=== PATIENT | female | born 1955 | race Caucasian/White ===

== ENCOUNTER → 2020-08-23 11:11 | Outpatient (BNVA) | payer MEDICARE, SELFPAY | PROVIDERS: Visit Provider Obstetrics & Gynecology | DX: Z01.818 Encounter for other preprocedural examination (principal); D21.9 Benign neoplasm of connective and other soft tissue, unspecified; N95.0 Postmenopausal bleeding | CPT/HCPCS: 99213 ==

== ENCOUNTER 2020-08-24 08:26 | Day surgery (SDC) | payer MEDICARE, SELFPAY ==
[2020-08-17 10:42] VITALS: BMI 33.0
--- NOTE | 2020-08-22 08:37 | HO.ANESPROP2 ---
Documented by User: Dori Haines 08/22/20 08:39 HPI - Anesthesia Eval Consult details Narrative: 65yo F for D&C: postmenopausal bleeding PMFSH Past Medical History Medical History Elevated cholesterol GERD (gastroesophageal reflux disease) HTN (hypertension) On beta addison at home Family History Family History Mother Breast cancer Maternal Uncle Lung cancer Brother Colon cancer Surgical History Surgical History History of surgical removal of pilonidal cyst Social History Social History (Updated 08/23/20 @ 11:29 by ELVIS Gonzalez) Alcohol intake: never Smoking Status: Never smoker Use of substances other than those prescribed or required for medical reasons: No Advance Directives: No Advance Directives Information Provided: No Advance Directives on File: No Recently lost weight without trying: No Sexual orientation: Straight/Heterosexual Gender identity: female Meds Allergies Allergy/AdvReac Type Severity Reaction Status Date / Time lisinopril Allergy Unknown Cough Verified 08/23/20 11:25 Home Medications Medication Instructions Recorded Confirmed Type calcium carbonate-vitamin D3 1 tab PO BID 08/17/20 08/17/20 History [Calcium 500 + D (D3)] cyclosporine [Restasis] 1 drp OPHTHALMIC (EYE) Q12H 08/17/20 08/17/20 History losartan 50 mg PO DAILY 08/17/20 08/17/20 History metoprolol succinate 100 mg PO DAILY 08/17/20 08/17/20 History metronidazole [MetroCream] 1 applic TOPICAL BID 08/17/20 08/17/20 History omega 9-rul-lmj-fish oil [Fish Oil] 1 cap PO DAILY 08/17/20 08/17/20 History pantoprazole 20 mg PO DAILY 08/17/20 08/17/20 History simvastatin 40 mg PO BEDTIME 08/17/20 08/17/20 History fluorometholone 0.25 % eye 1 drp OPHTHALMIC (EYE) Q6H 08/23/20 History drops,suspension Exam Exam Date and Time: August 22, 2020 0837 Height,Weight and Vital Signs: Height 5 ft 1 in Weight 79.379 kg Pertinent Lab Results Pertinent Lab Results: Laboratory Tests 06/04/20 15:48 BUN 22 H Creatinine 0.87 Assessment and Plan Assessment Anesthesia Assessment: Chart Reviewed Documented by User: Jayesh Palma MD 08/24/20 10:57 PMFSH Past Medical History Medical History Elevated cholesterol GERD (gastroesophageal reflux disease) HTN (hypertension) On beta addison at home Family History Family History Mother Breast cancer Maternal Uncle Lung cancer Brother Colon cancer Surgical History Surgical History History of surgical removal of pilonidal cyst Social History Social History (Updated 08/23/20 @ 11:29 by ELVIS Gonzalez) Alcohol intake: never Smoking Status: Never smoker Use of substances other than those prescribed or required for medical reasons: No Advance Directives: No Advance Directives Information Provided: No Advance Directives on File: No Recently lost weight without trying: No Sexual orientation: Straight/Heterosexual Gender identity: female Meds Allergies Allergy/AdvReac Type Severity Reaction Status Date / Time lisinopril Allergy Unknown Cough Verified 08/23/20 11:25 Home Medications Medication Instructions Recorded Confirmed Type calcium carbonate-vitamin D3 1 tab PO BID 08/17/20 08/17/20 History [Calcium 500 + D (D3)] cyclosporine [Restasis] 1 drp OPHTHALMIC (EYE) Q12H 08/17/20 08/17/20 History losartan 50 mg PO DAILY 08/17/20 08/17/20 History metoprolol succinate 100 mg PO DAILY 08/17/20 08/17/20 History metronidazole [MetroCream] 1 applic TOPICAL BID 08/17/20 08/17/20 History omega 3-law-sgl-fish oil [Fish Oil] 1 cap PO DAILY 08/17/20 08/17/20 History pantoprazole 20 mg PO DAILY 08/17/20 08/17/20 History simvastatin 40 mg PO BEDTIME 08/17/20 08/17/20 History fluorometholone 0.25 % eye 1 drp OPHTHALMIC (EYE) Q6H 08/23/20 History drops,suspension Exam Airway Mallampati Class: III TM Dist: >3cm Neck ROM: Full Loose/Missing/Broken Teeth: No Heart: rrr Lungs: nl Other: ao3 Assessment and Plan Assessment Anesthesia Assessment: Anesthesia Plan Discussed and Chart Reviewed Final Anesthetic Review NPO: Yes ASA Class: III Final Preanesthetic Review: No Changes in Pt Med Stat, Meds/Allgs Chart Reviewed, Consent Obtained/Reviewed and Anes Risks/Benef Reviewed Patient Risk: Intermediate Procedure Risk: Intermediate Anesthetic Plan Anesthetic Plan: GA Disposition: Standard PACU
[2020-08-24] VITALS (10 sets, daily range): BP systolic 95–161; BP diastolic 36–58; PULSE 47–70; RESP 16–19; TEMP 36.1–36.9; O2SAT 94–100
[2020-08-24] MEDS: Lactated Ringers 1,000 ML 100 ML IVCONT (09:47)
--- NOTE | 2020-08-24 11:25 | MHC.SHP ---
Pre-Procedural Eval Section A The patient is an INPATIENT: No Changes since office visit: No Cold of Flu in the past 2 weeks, No New Medical Problems, No Changes in Medication and No Patient answered all questions The History & Physical has been completed within 30 days and I have reviewed it.: Yes Section B Chief Complaint: postmenopausal bleeding Allergies: Allergies Allergy/AdvReac Type Severity Reaction Status Date / Time lisinopril Allergy Unknown Cough Verified 08/23/20 11:25 Plan Diagnosis/Plan: Unchanged Patient has been examined and remains a candidate for the planned procedure
--- NOTE | 2020-08-24 12:14 | PM.OP ---
Brief Operative Note Date of procedure: 08/24/20 Pre-op diagnosis: Postmenopausal bleeding Post-op diagnosis: same Procedure: Hysteroscopy D&C, Polypectomy Surgeon: Samir Whitmore MD Anesthesia: MAC Estimated blood loss (mL): 0 Pathology: other (Endometrial Scrapping. Polyp) Condition: stable Disposition: PACU
--- NOTE | 2020-08-24 12:23 | P.OP_ITS ---
Operative Note Operative Note Narrative: Preop Diagnosis: Post Menopausal bleeding Operation: Diagnostic Hysteroscopy, Dilataion & Curettage and polypectomy Post Op Diagnosis: Endometrial Polyp QBL: Minimal Anesthesia: MAC Surgeon: Samir Whitmore MD Religion Department Chair: None Complication: None Pathology: Endometrial Scrapings, Endometrial polyp Procedure: The paPreop Diagnosis: Post Menopausal bleeding Operation: Diagnostic Hysteroscopy, Dilataion & Curettage and polypectomy Post Op Diagnosis: Endometrial Polyp QBL: Minimal Anesthesia: MAC Surgeon: Samir Whitmore MD Religion Department Chair: None Complication: None Pathology: Endometrial Scrapings, Endometrial polyp Procedure: The patient was put in the dorsal lithotomy position, scrubbed, and draped in the usual manner. A sterile speculum was inserted in the patient's vagina. The anterior lip of the cervix was grasped with a single tooth tenaculum. The cervix was dilated up t o 5 mm, then the scope was inserted in the patient's uterus. Inspection revealed endometrial polyp. The Myosure Reach device was used; it was introduced through the operative channel and polypectomy done with no complications. At the end of the procedure, all instruments were taken out of the patient uterine and vaginal cavity. The single tooth tenaculum was removed and homeostasis was assured using pressure,. The patient tolerated the procedure well and was transferred to the PACU in a stable condition.
[2020-08-24] MEDS: Ketorolac Tromethamine 30 MG/ML VIAL IVPUSH (12:52)
--- NOTE | 2020-08-24 13:36 | HO.POSTANES ---
Post Anesthesia Evaluation Post Anesthesia Evaluation Vital Signs: Vital Signs Temp Pulse Resp BP Pulse Ox 08/24/20 13:30 57 18 137/55 L 97 08/24/20 13:15 55 19 136/55 L 95 08/24/20 13:00 54 16 128/51 L 95 08/24/20 12:46 50 18 106/43 L 96 08/24/20 12:31 47 L 16 95/38 L 94 08/24/20 12:26 49 L 16 110/36 L 96 08/24/20 12:21 51 16 132/46 L 100 08/24/20 12:17 97.0 F 50 16 147/58 H 100 08/24/20 09:31 98.4 F 69 16 161/58 H 98 Anesthesia: General Mental Status: Awake Pain Control: Satisfactory Nausea/Vomiting: None Hydration: Adequate Anesthesia-Related Issues: No Anes. Related Issues
== END 2020-08-24 14:39 | disposition home or self-care (01) ==
PROVIDERS: PCP Internal Medicine; Visit Provider Obstetrics & Gynecology
PROC: 0UDB8ZX Extraction of Endometrium, Via Natural or Artificial Opening Endoscopic, Diagnostic (ICD-10-PCS; CPT 58558; principal; 2020-08-24 10:00)
DX: N95.0 Postmenopausal bleeding (principal); N84.0 Polyp of corpus uteri; I10 Essential (primary) hypertension; E78.00 Pure hypercholesterolemia, unspecified; K21.9 Gastro-esophageal reflux disease without esophagitis; Z79.899 Other long term (current) drug therapy
CPT/HCPCS: 58558; 88305; J1885; J2405; J3010

== ENCOUNTER 2020-08-30 09:07 | Outpatient (REF) | payer MEDICARE, SELFPAY ==
--- NOTE | 2020-08-30 09:11 | US_ITS ---
EXAMINATION: US PELVIS COMPLETE US PELVIS TRANSABDOMINAL CLINICAL INFORMATION: Benign neoplasm of connective or other soft tissue. COMPARISON: Ultrasound pelvis 05/16/2020. TECHNIQUE: Transabdominal and transvaginal ultrasounds of the pelvis are performed. FINDINGS: The uterus is anteverted, anteflexed and enlarged measuring 13.4 cm in length, 6.8 cm in AP and 7.9 cm wide. There are several hyperechoic lesions visualized. 1. The largest lesion in the fundus measures 7.5 x 7.0 x 8.2 cm. Previously it measured 7.8 x 6.8 x 8.3 cm. 2. Lesion in the left posterior lower body of the uterus measures 2.0 x 1.9 x 2.0 cm. Previously it measured 2.1 x 1.9 x 1.8 cm. 3. Lesion in the right posterior lower body of the uterus measures 2.6 x 2.3 x 2.5 cm. Previously it measured 2.3 x 2.3 x 2.0 cm. 4. Smaller lesion in the left mid body of the uterus measures 0.9 x 0.4 x 0.9 cm. Previously it measured 1.1 x 0.4 x 1.5 cm. 5. Lesion in the anterior body of the uterus measures 0.9 x 0.5 x 0.9 cm. Previously not seen. The right ovary measures 2.0 x 1.4 x 1.2 cm and volume 1.8 mL. The ovaries are unremarkable. Previously it measured 1.9 x 1.7 x 1.3 cm. The left ovary measures 2.6 x 1.0 x 1.5 cm and volume 1.9 mL. Previously it measured 2.2 x 1.4 x 1.1 cm. There is no free fluid in the cul-de-sac. US/US pelvic complete IMPRESSION: 1. Bulky enlarged uterus with multiple fibroids as described above. 2. The ovaries are unremarkable.
== END 2020-08-30 09:08 | disposition home or self-care (01) ==
LOC: HO.HMGCX 09:07
PROVIDERS: PCP Internal Medicine; Visit Provider Obstetrics & Gynecology
DX: D21.9 Benign neoplasm of connective and other soft tissue, unspecified (principal); N85.02 Endometrial intraepithelial neoplasia [EIN]
CPT/HCPCS: 76830; 76856; 99213; Q3014

== ENCOUNTER 2021-06-18 08:09 | Outpatient (REF) | payer MEDICARE, SELFPAY ==
[2021-06-18 11:27] LABS: MANUAL DIFF FLAG NO
[2021-06-18 11:35] LABS: Basophils Percent Auto 0.2 % (0-2); Eosinophils Absolute Auto 0.1 X10*3/uL (0.0-0.4); Eosinophils Percent Auto 1.1 % (0-4); Hematocrit 41.2 % (37-47); Hemoglobin 13.1 g/dl (12.0-16.0); Imm Gran Abs Auto 0.02 X10*3/uL (0.00-0.03); Imm Gran Pct Auto 0.4 % (0.0-0.4); Lymphocytes Absolute Auto 1.4 X10*3/uL (1.2-4.9); Lymphocytes Percent Auto 25.9 % (20-40); Mean Corpuscular HGB Conc 31.8 g/dl (31.0-35.0); Mean Corpuscular Hemoglobin 27.6 pg (27.0-33.0); Mean Corpuscular Volume 86.9 fL (80-98); Mean Platelet Volume 11.9 fL (9.4-12.3); Monocytes Absolute Auto 0.5 X10*3/uL (0.1-1.2); Monocytes Percent Auto 9.6 % (2-11); Neutrophils Absolute Auto 3.5 X10*3/uL (2.0-8.3); Neutrophils Percent Auto 62.8 % (45-73); Platelet Count 200 X10*3/uL (160-400); Red Blood Count 4.74 X10*6/uL (4.20-5.50); Red Cell Distribution Width 13.2 % (11.0-16.0); White Blood Count 5.5 X10*3/uL (4.8-10.8)
[2021-06-18 11:57] LABS: Alanine Aminotransferase 30 U/L (0-31); Albumin Level 4.3 g/dL (3.5-5.0); Alkaline Phosphatase 96 U/L (39-117); Anion Gap 13 (12-20); Aspartate Amino Transferase 24 U/L (5-31); Bilirubin Direct 0.2 mg/dL (0.0-0.5); Bilirubin Total 0.4 mg/dL (0.0-1.0); Blood Urea Nitrogen 19 mg/dL (9-16); Carbon Dioxide 28 mmol/L (22-29); Chloride 107 mmol/L (96-108); Cholesterol 167 mg/dL; Estimated Glomerular Filt Rate > 60; Glucose Fasting 101 mg/dL (60-99); HDL Cholesterol 39 mg/dL; LDL Cholesterol Calculated 94 mg/dl; Potassium 4.4 mmol/L (3.3-5.1); Sodium 144 mmol/L (135-145); Total Protein 6.9 g/dL (6.5-8.0); Triglycerides 172 mg/dL
== END 2021-06-18 08:10 | disposition home or self-care (01) ==
LOC: HO.HMGCLDS 08:09
PROVIDERS: PCP Internal Medicine; Visit Provider Internal Medicine
DX: R53.83 Other fatigue (principal); E78.5 Hyperlipidemia, unspecified
CPT/HCPCS: 36415; 80051; 80061; 80076; 82565; 82947; 84520; 85025

== ENCOUNTER 2021-06-21 13:26 | Outpatient (REF) | payer MEDICARE, SELFPAY ==
--- NOTE | ~2021-06-21 | XR_ITS ---
EXAMINATION: XR FOOT, RIGHT CLINICAL INFORMATION: Right foot pain COMPARISON: April 23, 2015 TECHNIQUE: AP, lateral, and oblique views of the right foot. FINDINGS: There is no evidence of acute fracture or dislocation of the right foot. There is a minimal plantar calcaneal spur and a small Achilles calcaneal spur. XR/XR foot RT min 3V IMPRESSION: Calcaneal spurs without evidence of acute fracture or dislocation of the right foot.
== END 2021-06-21 13:27 | disposition home or self-care (01) ==
LOC: HO.HMGCX 13:26
PROVIDERS: PCP Internal Medicine; Visit Provider Internal Medicine
DX: M79.671 Pain in right foot (principal)
CPT/HCPCS: 73630

== ENCOUNTER 2021-07-19 07:49 | Outpatient (REF) | payer MEDICARE, SELFPAY ==
--- NOTE | ~2021-07-19 | MM_ITS ---
EXAMINATION: MM SCREENING DIGITAL BREAST TOMOSYNTHESIS, BILATERAL CLINICAL INFORMATION: Screening. Asymptomatic. The lifetime risk of breast cancer based on the Tyrer-Cuzick Model is 11%. COMPARISON: Mammography: 07/13/2020, 12/07/2018, 12/04/2017 TECHNIQUE: Digital breast tomosynthesis is performed in both the craniocaudal and mediolateral oblique views along with computer-aided detection (CAD). Synthesized 2D images are generated from the tomosynthesis. FINDINGS: The breasts are heterogeneously dense, which may obscure small masses (ACR BI-RADS breast composition Category c). There are no significant masses, abnormal calcifications, or other abnormalities. No developing density. No significant changes from prior exams. Breast tissue composition borders on average fibroglandular. MM/MM tomosynthesis screening BI IMPRESSION: There are no significant changes from prior study. ASSESSMENT: BI-RADS 1: Negative RECOMMENDATION: Routine annual mammography screening. This patient's information was entered into a reminder system with a target due date for their next mammogram.
== END 2021-07-19 07:50 | disposition home or self-care (01) ==
LOC: HO.MAMMO 07:49
PROVIDERS: Visit Provider Internal Medicine
DX: Z12.31 Encounter for screening mammogram for malignant neoplasm of breast (principal)
CPT/HCPCS: 77063; 77067

== ENCOUNTER 2021-08-09 09:50 | Outpatient (REF) | payer MEDICARE, SELFPAY ==
--- NOTE | ~2021-08-09 | XR_ITS ---
EXAMINATION: XR KNEE, RIGHT CLINICAL INFORMATION: Degenerative joint disease. COMPARISON: None. TECHNIQUE: AP, lateral, and sunrise views of the right knee. FINDINGS: No significant joint space narrowing. Tiny medial compartment marginal osteophytes. No osseous erosion. No fracture or dislocation. Small joint effusion. XR/XR knee RT 3V IMPRESSION: Minimal medial compartment arthrosis. Small joint effusion.
== END 2021-08-09 09:51 | disposition home or self-care (01) ==
LOC: HO.HMGCX 09:50
PROVIDERS: PCP Internal Medicine; Visit Provider Internal Medicine
DX: M25.561 Pain in right knee (principal)
CPT/HCPCS: 73562

== ENCOUNTER 2022-02-24 10:19 | Outpatient (REF) | payer MEDICARE, SELFPAY ==
--- NOTE | ~2022-02-24 | MR_ITS ---
EXAMINATION: MR KNEE WITHOUT CONTRAST, RIGHT CLINICAL INFORMATION: Chronic right knee pain instability. COMPARISON: X-rays of the right knee August 2021 TECHNIQUE: MRI of the knee without contrast was performed using routine sequences on a high-field scanner. FINDINGS: MENISCI: Medial Meniscus: There is blunting of the free edge of the posterior horn There are scattered areas of increased signal along the femoral and tibial articular surfaces particularly along the peripheral aspect of the meniscus. There is also deformity at the junction of the posterior horn and posterior root likely a consequence of a partially detached and displaced meniscal fragment related to the aforementioned tear. The body and anterior horn are intact. Lateral Meniscus: Intact LIGAMENTS: Cruciate: Intact Collateral: o EXTENSOR MECHANISM: Intact ARTICULAR CARTILAGE/BONE: Patellofemoral Compartment: Normal Medial Compartment: Minimal subchondral edema with overlying cartilage thinning in the weightbearing medial femoral condyle. Overall minimal arthrosis. Lateral Compartment: Minimal cartilage heterogeneity in the weightbearing tibial articular surface. Femoral cartilage normal. Overall minimal arthrosis. JOINT FLUID AND BURSAE: There is a mild joint effusion. MR/MR knee RT wo con IMPRESSION: 1. Complex tear the posterior horn of the medial meniscus. Partially detached meniscal fragment related to the tear. 2. Minimal osteoarthritis.
== END 2022-02-24 10:20 | disposition home or self-care (01) ==
LOC: HO.MRI 10:19
PROVIDERS: PCP Internal Medicine; Visit Provider Internal Medicine
DX: M25.561 Pain in right knee (principal); M25.461 Effusion, right knee
CPT/HCPCS: 73721

== ENCOUNTER → 2022-03-10 09:40 | Outpatient (BNVA) | payer MEDICARE, SELFPAY | PROVIDERS: PCP Internal Medicine; Visit Provider Orthopaedic Surgery | DX: S83.241A Other tear of medial meniscus, current injury, right knee, initial encounter (principal) | CPT/HCPCS: 99202 ==

== ENCOUNTER 2022-04-09 09:07 | Day surgery (SDC) | payer MEDICARE, SELFPAY ==
[2022-04-03 09:42] VITALS: BMI 31.1
--- NOTE | 2022-04-08 08:41 | P.CONAN_ITS ---
Documented by User: Dori Haines NP 04/08/22 08:42 HPI - Anesthesia Eval Consult details Narrative: 67yo F for Right Knee Arthroscopy PMFSH Active Problems Active Problems: All Active Problems (Updated 03/10/22 @ 06:55 by Elijah Montes MD) Postmenopausal bleeding (Acute) Myoma (Acute) Endometrial intraepithelial neoplasia (EIN) (Acute) Tear of medial meniscus of right knee (Acute) Past Medical History Medical History (Updated 03/10/22 @ 06:55 by Elijah Montes MD) Elevated cholesterol GERD (gastroesophageal reflux disease) HTN (hypertension) On beta addison at home Family History Family History Mother Breast cancer Maternal Uncle Lung cancer Brother Colon cancer Surgical History Surgical History (Updated 04/03/22 @ 09:16 by Aidee Stevenson RN) H/O colonoscopy History of dilatation and curettage History of surgical removal of pilonidal cyst Social History Social History (Updated 03/10/22 @ 09:51 by Nataly Sylvester CMA) Alcohol intake: never Current occupational status: retired Sexual orientation: Straight/Heterosexual Gender identity: Female Meds Allergies Allergy/AdvReac Type Severity Reaction Status Date / Time lisinopril Allergy Unknown Cough Verified 08/30/20 14:49 Home Medications Medication Instructions Recorded Confirmed Last Taken Type calcium carbonate 500 mg-vitamin 1 tab PO BID 08/17/20 04/03/22 Unknown History D3 3.125 mcg (125 unit) tablet cyclosporine 0.05 % eye drops in a 1 drp OPHTHALMIC (EYE) Q12H 08/17/20 04/03/22 08/24/20 07:00 History dropperette (Restasis) losartan 50 mg tablet 50 mg PO DAILY 08/17/20 04/03/22 Unknown History metoprolol succinate 100 mg 100 mg PO DAILY 08/17/20 04/03/22 04/09/22 History tablet,extended release 24 hr metronidazole 0.75 % topical cream 1 applic TOPICAL BID 08/17/20 04/03/22 Unknown History (MetroCream) omega 2-hat-gjo-fish oil 1,000 mg 1 cap PO DAILY 08/17/20 04/03/22 Unknown History (120 mg-180 mg) capsule (Fish Oil) pantoprazole 20 mg tablet,delayed 20 mg PO DAILY 08/17/20 04/03/22 04/09/22 History release simvastatin 40 mg tablet 40 mg PO BEDTIME 08/17/20 04/03/22 Unknown History fluorometholone 0.25 % eye 1 drp OPHTHALMIC (EYE) Q6H 08/23/20 04/03/22 08/24/20 07:00 History drops,suspension (FML Forte) Exam Exam Date and Time: April 08, 2022 0841 Height,Weight and Vital Signs: Height 5 ft 2 in Weight 77.111 kg Assessment and Plan Assessment Anesthesia Assessment: Chart Reviewed Documented by User: Julio Cesar Cuevas MD 04/09/22 17:17 [facility] Past Medical History Medical History (Updated 03/10/22 @ 06:55 by Elijah Montes MD) Elevated cholesterol GERD (gastroesophageal reflux disease) HTN (hypertension) On beta addison at home Family History Family History Mother Breast cancer Maternal Uncle Lung cancer Brother Colon cancer Family history of problems with anesthesia: No Surgical History Surgical History (Updated 04/03/22 @ 09:16 by Aidee Stevenson RN) H/O colonoscopy History of dilatation and curettage History of surgical removal of pilonidal cyst History of Problems with Anesthesia: No Social History Social History (Updated 03/10/22 @ 09:51 by Nataly Sylvester CMA) Alcohol intake: never Current occupational status: retired Sexual orientation: Straight/Heterosexual Gender identity: Female Meds Allergies Allergy/AdvReac Type Severity Reaction Status Date / Time lisinopril Allergy Unknown Cough Verified 08/30/20 14:49 Home Medications Medication Instructions Recorded Confirmed Last Taken Type calcium carbonate 500 mg-vitamin 1 tab PO BID 08/17/20 04/03/22 Unknown History D3 3.125 mcg (125 unit) tablet cyclosporine 0.05 % eye drops in a 1 drp OPHTHALMIC (EYE) Q12H 08/17/20 04/03/2208/24/20 07:00 History dropperette (Restasis) losartan 50 mg tablet 50 mg PO DAILY 08/17/20 04/03/22 Unknown History metoprolol succinate 100 mg 100 mg PO DAILY 08/17/20 04/03/22 04/09/22 History tablet,extended release 24 hr metronidazole 0.75 % topical cream 1 applic TOPICAL BID 08/17/20 04/03/22 Unknown History (MetroCream) omega 4-xvg-pax-fish oil 1,000 mg 1 cap PO DAILY 08/17/20 04/03/22 Unknown History (120 mg-180 mg) capsule (Fish Oil) pantoprazole 20 mg tablet,delayed 20 mg PO DAILY 08/17/20 04/03/22 04/09/22 History release simvastatin 40 mg tablet 40 mg PO BEDTIME 08/17/20 04/03/22 Unknown History fluorometholone 0.25 % eye 1 drp OPHTHALMIC (EYE) Q6H 08/23/20 04/03/22 08/24/20 07:00 History drops,suspension (FML Forte) Exam Airway Mallampati Class: III TM Dist: >3cm Neck ROM: Full Loose/Missing/Broken Teeth: Yes (Poor dentiton ) Heart: S1, S2 Lungs: b/l breath sounds Assessment and Plan Assessment Anesthesia Assessment: Anesthesia Plan Discussed Final Anesthetic Review Family History of Problems with Anesthesia: No History of Problems with Anesthesia: No NPO: Yes ASA Class: II Final Preanesthetic Review: Meds/Allgs Chart Reviewed, Consent Obtained/Reviewed and Anes Risks/Benef Reviewed Patient Risk: Intermediate Procedure Risk: Intermediate Anesthetic Plan Anesthetic Plan: GA Disposition: Standard PACU
[2022-04-09 11:27] VITALS: BP 152/44; PULSE 57; RESP 18; TEMP 36.3; O2SAT 98
[2022-04-09] MEDS: Lactated Ringers 1,000 ML 100 ML IVCONT (12:05)
--- NOTE | 2022-04-09 12:51 | MHC.SHP ---
Pre-Procedural Eval Section A Date of Service: 04/09/22 The patient is an INPATIENT: No Changes since office visit: Yes Patient answered all questions; No Cold of Flu in the past 2 weeks, No New Medical Problems and No Changes in Medication The History & Physical has been completed within 30 days and I have reviewed it.: Yes Section B Chief Complaint: meniscus tear Allergies: Allergies Allergy/AdvReac Type Severity Reaction Status Date / Time lisinopril Allergy Unknown Cough Verified 08/30/20 14:49 Plan I have reviewed the history and physical and performed a pertinent physical examination on my patient. No changes have occurred unless specified.
--- NOTE | 2022-04-09 13:14 | PM.OP ---
Brief Operative Note Date of Service: 04/09/22 Pre-op diagnosis: Right knee MMT Procedure: Tight knee partial medial meniscectomy Surgeon: Elijah Montes MD Anesthesia: GETA Was an Digital Associate used for this Procedure?: No Estimated blood loss (mL): 0 Tourniquet time (min): 14 IV fluids (mL): 600 Pathology: none sent Condition: stable Disposition: PACU
[2022-04-09 13:31] VITALS: BP 162/66; PULSE 63; RESP 19; TEMP 36.3; O2SAT 100
[2022-04-09 13:36] VITALS: BP 152/67; PULSE 58; RESP 18; O2SAT 97
[2022-04-09 13:41] VITALS: BP 159/74; PULSE 63; RESP 16; O2SAT 97
[2022-04-09 13:46] VITALS: BP 158/41; PULSE 49; RESP 16; TEMP 36.2; O2SAT 98
[2022-04-09] MEDS: oxyCODONE HCl Immed Release 5 MG TABLET PO (13:49)
[2022-04-09 14:00] VITALS: BP 161/56; PULSE 51; RESP 16; TEMP 36.2; O2SAT 98
--- NOTE | 2022-04-09 14:46 | W.PM.OPN ---
Operative Note Operative Note Date of Service: 04/09/22 Narrative: Date of Service: 04/09/22 Pre-op diagnosis: Right knee MMT Procedure: Tight knee partial medial meniscectomy Surgeon: Elijah Montes MD Anesthesia: GETA Was an Tongue And Groove Machine Operator used for this Procedure?: No Estimated blood loss (mL): 0 Tourniquet time (min): 14 IV fluids (mL): 600 Pathology: none sent Condition: stable Disposition: PACU Procedure in detail: Patient was brought to the operating room placed supine on the arthroscopic table and prepped and draped in standard sterile fashion. A time-out was called to identify proper site proper procedure proper surgeon and IV antibiotics per weight were administered. I began by exsanguinating the limb and insufflating tourniquet to 300 mm Hg. Then made a standard anterolateral stab incision. knee was insufflated with water and 30 degree arthroscope was placed. There was grade 1 fibrillations of the patella but overall suprapatellar pouch was plane and the gutters were clean. I descended into the medial compartment where I made my medial portal under direct visualization. There was a complex tear of the body and posterior horn of the medial meniscus. The root was intact and there was grade 1 changes with some scattered grade 2 changes throughout the medial compartment. I used a combination of biter shaver and cautery to remove unstable portions of the meniscus. Approximately 40% meniscal volume was removed. Once I was satisfied with this the ACL was examined and intact and the lateral compartment also was normal and without the need for intervention. I then removed all instrumentation and closed the portals with skin glue. 25 mL of 2% Marcaine with epinephrine was injected into the joint and the surrounding soft tissues. Patient was then placed in sterile dressing extubated brought recovery room stable condition. There were no known complications.
== END 2022-04-09 14:52 | disposition home or self-care (01) ==
PROVIDERS: PCP Internal Medicine; Visit Provider Orthopaedic Surgery
PROC: (CPT 29870; principal; 2022-04-09 11:00)
DX: S83.231A Complex tear of medial meniscus, current injury, right knee, initial encounter (principal); M17.11 Unilateral primary osteoarthritis, right knee; X58.XXXA Exposure to other specified factors, initial encounter; Y93.9 Activity, unspecified; Y92.9 Unspecified place or not applicable; Y99.8 Other external cause status; I10 Essential (primary) hypertension; E78.00 Pure hypercholesterolemia, unspecified; Z79.899 Other long term (current) drug therapy; Z88.8 Allergy status to other drugs, medicaments and biological substances
CPT/HCPCS: 29881; J0690; J3010

== ENCOUNTER 2022-04-14 07:17 | Outpatient (RCR) | payer MEDICARE, SELFPAY ==
--- NOTE | 2022-04-14 11:48 | MHC.PT.EP ---
[facility] [place] Office [place] Office [place] Office [address] Darshan Hernandez [address] [phone] F: [phone] F: [phone] F: [phone] F: [phone] Physical Therapy Plan of Care Date of Evaluation: Date of Surgery: 04/09/22 Diagnosis: S/P RIGHT KNEE PARTIAL MEDIAL MENISCECTOMY Assessment: EMILY PRESENTS POD 5 FOR ORTHOPEDIC FOLLOW UP AND PT EVALUATION. UPON EXAM SHE DEMONSTRATES THE EXPECTED IMPAIRMENTS OF DECREASED ROM, DECREASED STRENGTH, ALTERED POSTURE AND POSITIONING,ALTERED GAIT AND BALANCE, AND INCREASED PAIN AND EDEMA. FUNCTIONAL LIMITATIONS INCLUDE DECREASED ABILITY TO PERFORM HOMEMAKING AND SELF-CARE TASKS, DECREASED ABILITY TO PERFORM WALKING, RUNNING, JUMPING AND SQUATTING, INABILITY TO DRIVE AND PERFORM WORK TASKS, DECREASED PARTICIPATION IN COMMUNITY AND RECREATIONAL ACTIVITIES AND DISRUPTED SLEEP. THE Pt IS A GOOD CANDIDATE FOR SKILLED PT DUE TO AGE, POTENTIAL REMEDIATION OF IMPAIRMENTS, TYPICAL DISEASE/CONDITION PROGRESSION AND PROGNOSIS, COMORBIDITIES, AND MOTIVATION. PT WOULD BENEFIT FROM TAILORED PROGRAM OF THERAPEUTIC ACTIVITIES, FUNCTIONAL TRAINING, GAIT TRAINING, POSTURAL EDUCATION, NEUROMUSCULAR RE-EDUCATION, AND MODALITIES NEEDED. Frequency and Duration: The patient will be seen 2 X WEEK FOR 4 WEEKS Short Term Goals: INITIATE HEP AND PROMOTE SELF MANAGEMENT OF SYMPTOMS Pan [employer]ulcan[employer] Goals: TO DEMONSTRATE FULL KNEE ROM, EQUAL AMANDEEP TO DEMONSTRATE FULL LE STRENGTH, EQUAL AMANDEEP TO ASCEND AND DESCEND STAIRS WITH RECIPROCAL GAIT WITHOUT PAIN GREATER THAN 2/10 TO AMBULATE AD KACEY ON LEVEL AND UNEVEN SURFACES FOR FITNESS WITHOUT PAIN GREATER THAN 2/10 Treatment Plan: Modalities to reduce pain, spasms and effusion. Manual therapy to restore motion and function. Therapeutic exercise to improve strength and flexibility. Neuromuscular re-education for posture and balance. Therapeutic activities to return to functional activities of daily living. Electronically signed by: CAROLINA GARCIA PT, DPT Please sign and return to therapist. Thank you for your referral.
== END 2022-06-12 07:53 | disposition home or self-care (01) ==
LOC: HO.PT 07:17
PROVIDERS: Visit Provider Physician Assistant
DX: S83.241A Other tear of medial meniscus, current injury, right knee, initial encounter (principal)
CPT/HCPCS: 97110; 97161

== ENCOUNTER → 2022-04-14 08:46 | Outpatient (BNVA) | payer MEDICARE, SELFPAY | PROVIDERS: PCP Internal Medicine; Visit Provider Physician Assistant | DX: Z13.89 Encounter for screening for other disorder (principal) ==

== ENCOUNTER 2022-07-22 14:39 | Outpatient (REF) | payer MEDICARE, SELFPAY ==
--- NOTE | ~2022-07-22 | MM_ITS ---
EXAMINATION: BONE DENSITOMETRY CLINICAL INDICATION: Menopause. COMPARISON: Previous BD dated 12/07/2018 and baseline BD dated 07/06/2012. TECHNIQUE: Using a Green Clean DXA System (software version: 13.1) manufactured by [employer], dual-energy x-ray absorptiometry was performed of the lumbar spine and left hip. The images are of good technical quality. Summary results are attached. FINDINGS: AP SPINE L1-L4: Current: BMD 1.172 g/cm2, Z-score 1.2, T-score -0.1, normal, 1.8% increase from previous, 4.9% increase from baseline (<5% change is not significant). Prior: BMD 1.151 g/cm2. Baseline: BMD 1.117 g/cm2. LEFT FEMUR, NECK: Current: BMD 0.764 g/cm2, Z-score -0.7, T-score -2.0, osteopenia. Prior: BMD 0.739 g/cm2. Baseline: BMD 0.783 g/cm2. LEFT FEMUR, TOTAL: Current: BMD 0.829 g/cm2, Z-score -0.3, T-score -1.4, osteopenia, 2.7% increase from previous, 3.8% increase from baseline (<5% change is not significant). Prior: BMD 0.807 g/cm2. Baseline: BMD 0.799 g/cm2. IDENTIFIED RISK FACTORS: Menopause, hysterectomy, history of fracture (adult), family history (parent hip fracture), bilateral oophorectomy. HISTORY OF FRACTURE: Other fractures. MEDICATIONS: Calcium. MM/XR DEXA axial skeleton IMPRESSION: 1. DIAGNOSIS: Osteopenia based on the lowest T-score value of -2.0 in the femoral neck applying World Health Organization criteria. 2. 10-YEAR FRACTURE RISK PREDICTION, FRAX: Major osteoporotic fracture (clinical spine, forearm, hip or shoulder) 28.0%. Hip fracture 6.0%. 3. Treatment Recommendations: NOF guidelines recommend consideration for treatment in postmenopausal women and men age 50 and older presenting with the following: -A hip or vertebral (clinical or morphometric) fracture. -T-score less than or equal to -2.5 at the femoral neck or spine after appropriate evaluation to exclude secondary causes. -Low bone mass at the hip or spine and a 10-year fracture probability by FRAX of greater than or equal to 3% for hip fracture or greater than or equal to 20% for major osteoporotic fracture based on the [place] adapted WHO algorithm. 4. Other Recommendations: All treatment decisions require clinical judgment and consideration of individual patient factors, including patient preferences, comorbidities, previous drug use, risk factors not captured in the FRAX model (e.g. frailty, falls, vitamin D deficiency, increased bone turnover, interval significant decline in bone density) and possible under or overestimation of fracture risk by FRAX. Additional medical evaluation for secondary cause of low bone mineral density may be appropriate. FUTURE SCAN RECOMMENDATION: People with diagnosed cases of osteoporosis or at high risk for fracture should have regular bone mineral density tests. For patients eligible for Medicare, routine testing is allowed once every 2 years. The testing frequency can be increased to one year for patients who have rapidly progressing disease, those who are receiving or discontinuing medical therapy to restore bone mass, or have additional risk factors.
--- NOTE | ~2022-07-22 | MM_ITS ---
EXAMINATION: MM SCREENING DIGITAL BREAST TOMOSYNTHESIS, BILATERAL CLINICAL INFORMATION: Screening. Asymptomatic. The lifetime risk of breast cancer based on the Tyrer-Cuzick Model is 10.4%. COMPARISON: Mammography: July 19, 2021 and studies dating back to August 24, 2015 TECHNIQUE: Digital breast tomosynthesis is performed in both the craniocaudal and mediolateral oblique views along with computer-aided detection (CAD). Synthesized 2D images are generated from the tomosynthesis. FINDINGS: The breasts are heterogeneously dense, which may obscure small masses (ACR BI-RADS breast composition Category c). There are no significant masses, abnormal calcifications, or other abnormalities. MM/MM tomosynthesis screening BI IMPRESSION: No significant changes from prior exam. ASSESSMENT: BI-RADS 1: Negative RECOMMENDATION: Routine annual mammography screening. This patient's information was entered into a reminder system with a target due date for their next mammogram.
== END 2022-07-22 14:40 | disposition home or self-care (01) ==
LOC: HO.MAMMO 14:39
PROVIDERS: PCP Internal Medicine; Visit Provider Internal Medicine
DX: Z12.31 Encounter for screening mammogram for malignant neoplasm of breast (principal); Z13.820 Encounter for screening for osteoporosis; Z78.0 Asymptomatic menopausal state
CPT/HCPCS: 77063; 77067; 77080

== ENCOUNTER 2023-01-02 07:20 | Day surgery (SDC) | payer MEDICARE, SELFPAY ==
[2023-01-02 07:50] VITALS: BMI 31.1
[2023-01-02 07:59] VITALS: BMI 31.1
[2023-01-02] MEDS: Lactated Ringers 1,000 ML 50 ML IVCONT (08:31)
--- NOTE | 2023-01-02 08:54 | P.CONAN_ITS ---
HPI - Anesthesia Eval Consult details Narrative: 67 F for EGD and colon PMFSH Active Problems Active Problems: All Active Problems (Updated 03/10/22 @ 06:55 by Elijah Montes MD) Postmenopausal bleeding (Acute) Myoma (Acute) Endometrial intraepithelial neoplasia (EIN) (Acute) Tear of medial meniscus of right knee (Acute) Past Medical History Medical History Elevated cholesterol GERD (gastroesophageal reflux disease) HTN (hypertension) On beta addison at home Functional capacity: independent ambulation Family History Family History Mother Breast cancer Maternal Uncle Lung cancer Brother Colon cancer Family history of problems with anesthesia: No Surgical History Surgical History (Updated 05/19/22 @ 13:42 by ELVIS Whitlock) H/O colonoscopy History of dilatation and curettage History of surgical removal of pilonidal cyst Hx of arthroscopy of right knee History of Problems with Anesthesia: No Social History Social History Alcohol intake: never Patient Tobacco Use Status: Never used Tobacco Use of substances other than those prescribed or required for medical reasons: No Are you DNR?: No Advance Directives: No Advance Directives Information Provided: Yes Current occupational status: retired Sexual orientation: Straight/Heterosexual Gender identity: Female Meds Allergies Allergy/AdvReac Type Severity Reaction Status Date / Time lisinopril Allergy Unknown Cough Verified 05/19/22 13:41 Active Medications: Current Medications Lactated Ringer's (Lr) 1,000 mls @ 50 mls/hr IVCONT .Q20H KOTA Last Admin: 01/02/23 08:31 Dose: 50 mls/hr Sodium Biphosphate/Sodium Phosphate (Sodium Phosphate,[place]-Dibasic 133 Ml Enema) 133 ml AL ONCE PRN PRN Reason: Poor Colonoscopy Prep Results Home Medications Medication Instructions Recorded Confirmed Last Taken Type calcium carbonate 500 mg-vitamin 1 tab PO BID 08/17/20 01/02/23 Unknown History D3 3.125 mcg (125 unit) tablet cyclosporine 0.05 % eye drops in a 1 drp ophthalmic (eye) Q12H 08/17/20 01/02/23 08/24/20 07:00 History dropperette (Restasis) losartan 50 mg tablet 50 mg PO DAILY 08/17/20 01/02/23 Unknown History metoprolol succinate 100 mg 100 mg PO DAILY 08/17/20 01/02/23 01/02/23 History tablet,extended release 24 hr metronidazole 0.75 % topical cream 1 applic topical BID 08/17/20 01/02/23 Unknown History (MetroCream) omega 2-kch-icn-fish oil 1,000 mg 1 cap PO DAILY 08/17/20 01/02/23 Unknown History (120 mg-180 mg) capsule (Fish Oil) pantoprazole 20 mg tablet,delayed 20 mg PO DAILY 08/17/20 01/02/23 01/02/23 History release simvastatin 40 mg tablet 40 mg PO BEDTIME 08/17/20 01/02/23 Unknown History fluorometholone 0.25 % eye 1 drp ophthalmic (eye) Q6H 08/23/20 01/02/23 08/24/20 07:00 History drops,suspension (FML Forte) Exam Exam Date and Time: January 02, 2023 0854 Height,Weight and Vital Signs: Height 5 ft 2 in Weight 77.111 kg Airway Mallampati Class: IV TM Dist: >3cm Neck ROM: Full Loose/Missing/Broken Teeth: Yes (Fillings ) Heart: S1,S2 Lungs: b/l breath sounds Assessment and Plan Assessment Anesthesia Assessment: Anesthesia Plan Discussed and Chart Reviewed Final Anesthetic Review Family History of Problems with Anesthesia: No History of Problems with Anesthesia: No NPO: Yes ASA Class: III Final Preanesthetic Review: Meds/Allgs Chart Reviewed, Consent Obtained/Reviewed and Anes Risks/Benef Reviewed Patient Risk: Intermediate Procedure Risk: Intermediate Anesthetic Plan Anesthetic Plan: MAC: Disposition: Standard PACU
[2023-01-02 10:12] VITALS: BP 99/45; PULSE 61; RESP 15; TEMP 36.3; O2SAT 98
--- NOTE | 2023-01-02 10:15 | PM.OP ---
Brief Operative Note Date of Service: 01/02/23 Pre-op diagnosis: GERD, Screening Post-op diagnosis: other (Hiatal hernia, Gastric polyps, R/O Mcgee's, Colon polyp) Procedure: EGD with biopsies, Colonoscopy to the cecum and TI with cold snare polypectomy Surgeon: Abel Lagunas Anesthesia: MAC Was an Town Administrator used for this Procedure?: No Estimated blood loss (mL): 2.0 Pathology: other (A. Esophagus 29-30cm B. Gastric polyps C. Ascending colon polyp) Condition: stable Disposition: PACU
[2023-01-02 10:27] VITALS: BP 129/62; PULSE 68; RESP 18; TEMP 36.1; O2SAT 97
--- NOTE | 2023-01-02 12:16 | OP_ITS ---
SURGEON: Abel Lagunas MD INDICATIONS: The patient presents for evaluation of gastroesophageal reflux, colorectal cancer screening, and family history of colon cancer. Full consent has been obtained from her for this, including risks of bleeding and perforation. PREOPERATIVE DIAGNOSIS: POSTOPERATIVE DIAGNOSIS: PROCEDURE PERFORMED: Esophagogastroduodenoscopy with biopsy and colonoscopy to the cecum and terminal ileum with cold snare polypectomy. ESTIMATED BLOOD LOSS: COMPLICATIONS: ANESTHESIA: Monitored anesthesia care. ASSISTANTS: SPECIMENS: PREOPERATIVE DIAGNOSES: Gastroesophageal reflux, family history of colon cancer, and colorectal cancer screening. POSTOPERATIVE DIAGNOSES: Gastroesophageal reflux, family history of colon cancer, and colorectal cancer screening, rule out Mcgee's esophagus, hiatal hernia, and question of component of thoracic stomach, gastric polyps, colon polyp, diverticulosis, and internal hemorrhoids. DESCRIPTION OF PROCEDURE: The patient was placed in the left lateral decubitus position. The Olympus video gastroscope was passed in the posterior oropharynx and upper esophagus under direct vision. The scope was passed slowly to the distal esophagus. The gastroesophageal junction appeared at 30 cm. Extending from this to 29 cm were projections of probable Mcgee's mucosa to 29 cm. There was no evidence of any lesions nor ulceration. The scope entered the stomach. With insufflation of air, I did feel there was a large hiatal hernia as there was looping of the scope as I was trying to advance to the pylorus. There was some puckering of the gastric folds noted at approximately 50 cm. Once at the pylorus, I was able to cannulate the duodenum to the descending portion. The duodenum including the bulb appeared normal without mass or ulceration. The scope was withdrawn back into the stomach. The gastric antrum and body appeared normal with good peristalsis. The scope was retroflexed visualizing the proximal stomach carefully, which appeared normal, without any sign of mass or ulceration, other than several hyperplastic-appearing gastric polyps. Two of these were biopsied. The scope was straightened and withdrawn back in the esophagus. Multiple biopsies were obtained between 29 and 30 cm in the esophagus in the mucosa suspicious for Mcgee esophagus. Proximal to 29 cm, the esophageal mucosa appeared normal. The scope was withdrawn from the patient. She was turned around for the colonoscopy. The digital rectal exam revealed external hemorrhoids. The Olympus video pediatric colonoscope was entered into the rectum and advanced easily to the cecum. Once in the cecum, I did identify a normal-appearing cecal pouch with appendiceal orifice and a normal-appearing ileocecal valve. The terminal ileum was cannulated and appeared normal. The scope was withdrawn back in the colon. The entire cecum and ileocecal valve appeared normal. The scope was then slowly withdrawn assessing all mucosal surfaces carefully. Preparation was excellent. In the ascending colon was an approximately 5 or 6 mm grossly adenomatous polyp, which was removed by cold snare polypectomy and recovered by suction. The polypectomy site appeared clean, without any sign of residual polyp nor any significant bleeding. I did not visualize any other polyps, colitis, nor angiodysplasia. There was a mild amount of sigmoid diverticulosis. In the rectum, the scope was retroflexed visualizing small internal hemorrhoids but no other pathology. The rectal mucosa appeared normal. The scope was straightened. The scope was withdrawn from the patient. She tolerated both procedures well and was returned to the recovery area in stable condition. IMPRESSION: 1. Large hiatal hernia, question of thoracic stomach. 2. Gastric polyps. 3. Rule out Mcgee's esophagus. 4. Colon polyp. 5. Diverticulosis. 6. Internal hemorrhoids. PLAN: The results of the biopsies will be checked. I would recommend a repeat colonoscopy in 5 years. She was advised not to use any aspirin nor NSAIDs for 1 week. She will continue her pantoprazole, although I think she is only on 20 mg daily, and we may increase that to 40 mg daily based on the biopsies. I will also arrange for an outpatient barium swallow and upper GI series to further assess the anatomy of the upper GI tract in regard to whether or not she does have a thoracic stomach. She reports that she is otherwise asymptomatic on the pantoprazole, but I think it would be important to know that. She will be seen in followup in the office as well. MD HARPER Farr/FIDE / [id number] JENS
== END 2023-01-02 11:35 | disposition home or self-care (01) ==
PROVIDERS: PCP Internal Medicine; Visit Provider Internal Medicine
PROC: (CPT 45385; principal; 2023-01-02 08:30)
DX: Z12.11 Encounter for screening for malignant neoplasm of colon (principal); Z80.0 Family history of malignant neoplasm of digestive organs; D12.2 Benign neoplasm of ascending colon; K57.30 Diverticulosis of large intestine without perforation or abscess without bleeding; K64.8 Other hemorrhoids; K21.9 Gastro-esophageal reflux disease without esophagitis; K31.7 Polyp of stomach and duodenum; K44.9 Diaphragmatic hernia without obstruction or gangrene; I10 Essential (primary) hypertension; E78.5 Hyperlipidemia, unspecified; Z79.899 Other long term (current) drug therapy
CPT/HCPCS: 45385; 43239; 88305; 88342; J3010

== ENCOUNTER 2023-01-13 11:01 | Outpatient (REF) | payer MEDICARE, SELFPAY ==
--- NOTE | ~2023-01-13 | FL_ITS ---
PROCEDURE: UPPER GI WITH BARIUM SWALLOW CLINICAL INFORMATION: GERD with Mcgee's esophagus. COMPARISON: None TECHNIQUE: Routine upper GI air-contrast study and barium swallow was performed in upright and lying position. FINDINGS: Following oral administration of thick barium and effervescent granules in upright view there is normal propagation of bolus from the oral cavity through the pharynx, esophagus into stomach without any evidence of obstruction, narrowing or stricture. 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 This is best visualized on right oblique view. On placing patient supine and prone lying the course, caliber and peristalsis of the stomach is normal. There is a moderate-size hiatal hernia with moderate gastroesophageal reflux. There are multiple round lesions in the body of the stomach which do not move in upright or lying position. These may represent small polyps. The duodenal bulb and the sweep is normal. FL/FL upper GI w air w Ba Swallow IMPRESSION: Moderate-sized hiatal hernia with moderate gastroesophageal reflux. Suspect multiple gastric polyps in the body of the stomach. The esophagus is unremarkable. Fluoroscopy time: 2.6 minutes. Images: 65. Dose area product: 36.280 Gy-cm2
== END 2023-01-13 11:02 | disposition home or self-care (01) ==
LOC: HO.XRAY 11:01
PROVIDERS: PCP Internal Medicine; Visit Provider Internal Medicine
DX: K21.9 Gastro-esophageal reflux disease without esophagitis (principal); K22.70 Barrett's esophagus without dysplasia
CPT/HCPCS: 74246

== ENCOUNTER 2023-06-19 09:34 | Outpatient (REF) | payer MEDICARE, SELFPAY ==
[2023-06-19 11:36] LABS: MANUAL DIFF FLAG NO
[2023-06-19 11:49] LABS: Basophils Percent Auto 0.2 % (0-2); Eosinophils Absolute Auto 0.1 X10*3/uL (0.0-0.4); Eosinophils Percent Auto 1.3 % (0-4); Hematocrit 39.1 % (37.0-47.0); Hemoglobin 12.6 g/dl (12.0-16.0); Imm Gran Abs Auto 0.02 X10*3/uL (0.00-0.03); Imm Gran Pct Auto 0.4 % (0.0-0.4); Lymphocytes Absolute Auto 1.6 X10*3/uL (1.2-4.9); Lymphocytes Percent Auto 28.9 % (20-40); Mean Corpuscular HGB Conc 32.2 g/dl (31.0-35.0); Mean Corpuscular Hemoglobin 27.9 pg (27.0-33.0); Mean Corpuscular Volume 86.5 fL (80.0-98.0); Monocytes Absolute Auto 0.6 X10*3/uL (0.1-1.2); Monocytes Percent Auto 10.3 % (2-11); Neutrophils Absolute Auto 3.3 x10*3/uL (2.0-8.3); Neutrophils Percent Auto 58.9 % (45-73); Platelet Count 190 X10*3/uL (160-400); Red Blood Count 4.52 X10*6/uL (4.20-5.50); Red Cell Distribution Width 13.4 % (11.0-16.0); White Blood Count 5.5 X10*3/uL (4.8-10.8)
[2023-06-19 12:46] LABS: Alanine Aminotransferase 56 U/L (0-31); Albumin Level 4.3 g/dL (3.5-5.0); Alkaline Phosphatase 92 U/L (39-117); Anion Gap 14 (12-20); Aspartate Amino Transferase 37 U/L (5-31); Bilirubin Total 0.6 mg/dL (0.0-1.0); Blood Urea Nitrogen 23 mg/dL (9-16); Calcium 9.6 mg/dL (8.4-10.2); Carbon Dioxide 27 mmol/L (22-29); Chloride 105 mmol/L (96-108); Cholesterol 174 mg/dL; Estimated Glomerular Filt Rate 60; Glucose Fasting 92 mg/dL (60-99); HDL Cholesterol 45 mg/dL; LDL Cholesterol Calculated 98 mg/dl; Potassium 3.8 mmol/L (3.3-5.1); Sodium 142 mmol/L (135-145); Total Protein 7.2 g/dL (6.5-8.0); Triglycerides 156 mg/dL
== END 2023-06-19 09:35 | disposition home or self-care (01) ==
LOC: HO.HMGCLDS 09:34
PROVIDERS: PCP Internal Medicine; Visit Provider Internal Medicine
DX: Z00.00 Encounter for general adult medical examination without abnormal findings (principal); E78.5 Hyperlipidemia, unspecified
CPT/HCPCS: 36415; 80053; 80061; 85025

== ENCOUNTER 2023-07-28 07:36 | Outpatient (REF) | payer MEDICARE, SELFPAY | END 2023-07-28 07:37 | disposition home or self-care (01) | LOC: HO.MAMMO 07:36 | PROVIDERS: PCP Internal Medicine; Visit Provider Internal Medicine | DX: Z12.31 Encounter for screening mammogram for malignant neoplasm of breast (principal) | CPT/HCPCS: 77063; 77067 ==

== ENCOUNTER → 2023-07-28 07:45 | Outpatient (BNV) | payer MEDICARE, SELFPAY | PROVIDERS: PCP Internal Medicine; Visit Provider Radiology Diagnostic Radiology | DX: Z12.31 Encounter for screening mammogram for malignant neoplasm of breast (principal) | CPT/HCPCS: 77063; 77067 ==

== ENCOUNTER 2024-08-03 07:44 | Outpatient (REF) | payer MEDICARE, SELFPAY ==
--- NOTE | ~2024-08-03 | MM_ITS ---
EXAMINATION: MM SCREENING DIGITAL BREAST TOMOSYNTHESIS, BILATERAL CLINICAL INFORMATION: Screening. Asymptomatic. COMPARISON: Mammography: Comparison is made with available priors TECHNIQUE: Digital breast mammography with tomosynthesis is performed in both the craniocaudal and mediolateral oblique views along with computer-aided detection (CAD). FINDINGS: There are scattered areas of fibroglandular density (ACR BI-RADS breast composition Category b). Left: There are no significant masses, abnormal calcifications, or other abnormalities. Right: Asymmetry superior breast middle depth on MLO view. No suspicious calcifications or other abnormal findings. MM/MM tomosynthesis screening BI IMPRESSION: Additional imaging is recommended ASSESSMENT: BI-RADS BI-RADS 0 - Incomplete: Needs additional Imaging. RECOMMENDATION: 1. Additional views of the right breast 2. Targeted ultrasound if warranted after review of the additional views. 3. Radiology department staff will contact the patient for additional imaging. Additional Imaging required This examination should not preclude the clinical evaluation of a suspicious palpable abnormality. This patient's information was entered into a reminder system with a target due date for their next mammogram. Electronically signed by: Ana Tapia DO 08/14/2024 05:31 PM EDT
== END 2024-08-03 07:45 | disposition home or self-care (01) ==
LOC: HO.MAMMO 07:44
PROVIDERS: PCP Internal Medicine; Visit Provider Internal Medicine
DX: Z12.31 Encounter for screening mammogram for malignant neoplasm of breast (principal)
CPT/HCPCS: 77063; 77067

== ENCOUNTER → 2024-08-03 07:45 | Outpatient (BNV) | payer MEDICARE, SELFPAY | PROVIDERS: PCP Internal Medicine; Visit Provider Internal Medicine | DX: Z12.31 Encounter for screening mammogram for malignant neoplasm of breast (principal) | CPT/HCPCS: 77063; 77067 ==

== ENCOUNTER 2024-09-29 13:20 | Outpatient (REF) | payer MEDICARE, SELFPAY ==
--- NOTE | ~2024-09-29 | MM_ITS ---
EXAMINATION: MM DIAGNOSTIC DIGITAL BREAST TOMOSYNTHESIS, RIGHT CLINICAL INFORMATION: Diagnostic exam; follow-up one view asymmetry superior right breast MLO view, mid depth seen on screening exam. COMPARISON: Mammography: 08/03/2024, and available priors. TECHNIQUE: Digital breast tomosynthesis is performed in the following views: Full field 3-D right MLO view, as well as 3-D spot compression right MLO view obtained. Computer-aided diagnosis was used for this study. FINDINGS: There are scattered areas of fibroglandular density (ACR BI-RADS breast composition Category b). Spot compression and full field right ML view demonstrate the 1 view asymmetry does not persist, and is consistent with superimposition artifact of normal overlapping fibroglandular tissues (summation artifact). There is no persistent suspicious mass, suspicious calcifications, or areas of architectural distortion right breast. MM/MM tomosynthesis added views R IMPRESSION: -There are no persistent findings suspicious for malignancy in the right breast. -Recommend the patient return to routine annual screening in one year. ASSESSMENT: BI-RADS BI-RADS 1 - Negative RECOMMENDATION: 1 year F/U Results were provided to the patient at time of visit by the technologist. This patient's information was entered into a reminder system with a target due date for their next mammogram. Electronically signed by: Robbie Griffith MD 09/29/2024 01:54 PM BRANDEN FLORES
== END 2024-09-29 13:21 | disposition home or self-care (01) ==
LOC: HO.MAMMO 13:20
PROVIDERS: PCP Internal Medicine; Visit Provider Internal Medicine
DX: N64.89 Other specified disorders of breast (principal)
CPT/HCPCS: 77061; 77065

== ENCOUNTER → 2024-09-29 13:30 | Outpatient (BNV) | payer MEDICARE, SELFPAY | PROVIDERS: PCP Internal Medicine; Visit Provider Radiology Diagnostic Radiology | DX: R92.321 Mammographic fibroglandular density, right breast (principal) | CPT/HCPCS: 77065; G0279 ==

== ENCOUNTER 2025-08-01 10:40 | Outpatient (REF) | payer MEDICARE, SELFPAY ==
--- NOTE | ~2025-08-01 | XR_ITS ---
EXAMINATION: XR SHOULDER, RIGHT CLINICAL INFORMATION: S43.401A - Unspecified sprain of right shoulder joint, initial encounter COMPARISON: Correlated to chest x-ray dated April 27, 2018. TECHNIQUE: AP views in neutral and internal rotation and Y-view projection of the right shoulder. FINDINGS: No acute cortical disruption or malalignment. Asymmetric joint space narrowing acromioclavicular joint. 8 mm calcification in the soft tissues adjacent to the supraspinatus tendon insertion. XR/XR shoulder RT min 2V IMPRESSION: Calcific tendinosis/tendinopathy, supraspinatus/rotator cuff tendon. Electronically signed by: Wali Ramos MD 08/01/2025 12:20 PM EDT
[2025-08-01 13:22] LABS: Hematocrit 37.6 % (37.0-47.0); Hemoglobin 12.1 g/dl (12.0-16.0); Mean Corpuscular HGB Conc 32.2 g/dl (31.0-35.0); Mean Corpuscular Hemoglobin 27.5 pg (27.0-33.0); Mean Corpuscular Volume 85.5 fL (80.0-98.0); NRBC Abs Auto 0.000 X10*3/uL (0.0-0.012); NRBC Pct Auto 0.0 /100WBC (0.0-0.2); Platelet Count 210 X10*3/uL (160-400); Red Blood Count 4.40 X10*6/uL (4.20-5.50); White Blood Count 6.0 X10*3/uL (4.8-10.8)
[2025-08-01 14:03] LABS: Alanine Aminotransferase 54 U/L (0-31); Albumin Level 4.7 g/dL (3.5-5.0); Alkaline Phosphatase 106 U/L (39-117); Anion Gap 12 (12-20); Aspartate Amino Transferase 52 U/L (5-31); Blood Urea Nitrogen 18 mg/dL (9-16); Calcium 9.6 mg/dL (8.4-10.2); Carbon Dioxide 26 mmol/L (22-29); Chloride 109 mmol/L (96-108); Cholesterol 159 mg/dL (<200); Estimated Glomerular Filt Rate > 60; HDL Cholesterol 39 mg/dL (>40); Potassium 4.0 mmol/L (3.3-5.1); Sodium 143 mmol/L (135-145); Thyroid Stimulating Hormone 1.62 uIU/mL (0.32-4.0); Total Protein 7.5 g/dL (6.5-8.0); Triglycerides 217 mg/dL (<150)
== END 2025-08-01 10:41 | disposition home or self-care (01) ==
LOC: HO.HMGCX 10:40
PROVIDERS: PCP Internal Medicine; Visit Provider Internal Medicine
DX: S43.401A Unspecified sprain of right shoulder joint, initial encounter (principal); I10 Essential (primary) hypertension; Z28.82 Immunization not carried out because of caregiver refusal
CPT/HCPCS: 36415; 73030; 80048; 80061; 80076; 84443; 85027; 90471; 99212

== ENCOUNTER 2025-08-01 10:40 | Outpatient (AMB) | payer MEDICARE, SELFPAY ==
--- NOTE | 2025-08-01 10:42 | A.OFFPC_ITS ---
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 Accompanied by: Self / Same As Patient Allergies lisinopril Allergy (Unknown, Verified 08/01/25 10:42) Cough Tobacco use date assessed: 08/01/25 Fall risk assessment: No Falls in past year Last assessed Fall Risk: 08/01/25 Dental Screening Dental Screen Date: 08/01/25 Did you have a dental visit in the last 12 months?: Yes Did you have a dental problem in the last 6 months where you did not have access to dental care?: No Was dental information given to patient?: Patient has dentist [facility] Medical History (Updated 08/01/25 @ 11:34 by Chan Velez MD) GERD (gastroesophageal reflux disease) On beta addison at home Elevated cholesterol HTN (hypertension) Surgical History Hx of arthroscopy of right knee H/O colonoscopy (~01/02/23) History of dilatation and curettage History of surgical removal of pilonidal cyst Family History Mother Breast cancer Maternal Uncle Lung cancer Brother Colon cancer Social History (Updated 08/01/25 @ 11:23 by ELVIS Teixeira) Housing: House Alcohol intake: current Alcohol intake frequency: holidays/special occasions only Patient Tobacco Use Status: Never used Tobacco service: No Current occupational status: retired Sexual orientation: Straight/Heterosexual Gender identity: Female Cognitive needs: No Hearing needs: No Vision needs: Yes (rx glasses) Female Reproductive History Menstrual Age of Menarche: 10 Questionnaire PHQ-9 Over the last 2 weeks, how often have you been bothered by any of the following problems? 1. Little interest or pleasure in doing things: not at all 2. Feeling down, depressed, or hopeless: not at all 3. Trouble falling or staying asleep, or sleeping too much: not at all 4. Feeling tired or having little energy: not at all 5. Poor appetite or overeating: not at all 6. Feeling bad about yourself - or that you are a failure or have let yourself or your family down: not at all 7. Trouble concentrating on things, such as reading the newspaper or watching television: not at all 8. Moving or speaking so slowly that other people could have noticed. Or the opposite - being so fidgety or restless that you have been moving around a lot more than usual: not at all 9. Thoughts that you would be better off or of hurting yourself in some way: not at all Total score: 0 Source: Developed by Drs. Abel Amezcua, Tova Fernandez, Victorino Doe and colleagues, with an educational indio from [employer]. Thrive Questionnaire Date Thrive assessed: 08/01/25 I am a: Patient What is your living situation today?: I have a steady place to live Within the past 12 months, did the food you bought not last and you didn't have the money to get more?: Never true Within the past 12 months, did you worry whether your food would run out before you got money to buy more?: Never true Do you have trouble paying for medicines?: No Do you have trouble getting transportation to medical appointments?: No Do you have trouble paying your heating and electricity bill?: No Do you have trouble taking care of your child, family member or friend?: No Do you have trouble with day-to-day activities such as bathing, preparing meals, shopping, managing finances, etc.?: No Are you currently unemployed and looking for a job?: No Are you interested in more education?: No Please select the resources that you would like help with: None THRIVE Score: 0 AUDIT C Alcohol Use Questionnaire (AUDIT-C) 1. How often do you have a drink containing alcohol?: Monthly or less 2. How many drinks containing alcohol do you have on a typical day when you are drinking?: 1 or 2 3. How often do you have six or more drinks on one occasion?: Never Total Score: 1 MARÍA-7 AMB Questionnaire MARÍA-7 Date MARÍA - 7 assessed: 08/01/25 Feeling nervous, anxious, or on edge: 0 = Not at all Not being able to stop or control worryin = Not at all Worrying too much about different things: 0 = Not at all Trouble relaxin = Not at all Being so restless that it is hard to sit still: 0 = Not at all Becoming easily annoyed or irritable: 0 = Not at all Feeling afraid as if something awful might happen: 0 = Not at all Total MARÍA-7 score (0-4 normal; 5-9 mild; 10-14 moderate; 15-21 severe): 0 Source: Developed by Drs. Abel Amezcua, Tova Fernandez, Victorino Doe and colleagues, with an educational indio from [employer]. Physical exam (Primary Care) Vital Signs: Last Vital Signs Temp 98.0 F 08/01/25 11:16 Pulse 62 08/01/25 11:16 Resp 14 08/01/25 11:16 BP 146/82 H 08/01/25 11:16 Pulse Ox 97 08/01/25 11:16 Oxygen Delivery Method Room Air 08/01/25 11:16 BMI result Body Mass Index 32.3 Tobacco/Smoking Status: Tobacco use Status Tobacco use date assessed 08/01/25 08/01/25 10:44 Patient Tobacco Use Status Never used Tobacco 08/01/25 11:23 PHQ-9: PHQ-9 Score PHQ-9: Total score 0 08/01/25 11:23 Thrive Assessment: Date of Thrive Assessment Date Thrive assessed 08/01/25 08/01/25 10:49 Office Procedures Flu Questionnaire Does the patient have a severe egg allergy?: No Does the patient have severe life threatening allergies?: No Does the patient have a fever or illness today?: No Has the patient ever had Guillain-[place] Syndrome?: No Has the patient ever had any past reaction to a flu shot?: No Immunizations Fluarix [id number] (PF) 45 mcg (15 mcg x 3)/0.5 mL IM syringe Performing Provider: Chan Velez MD [facility] Documented (not given) by: ELVIS Teixeira on 08/01/25 11:24 Reason Not Given: Patient Refused Coding Level of Care Code Est Pt Level 4 (51673) Complex EM visit Add On G2211 Diagnoses HTN (hypertension) I10 Strain of right shoulder S46.911A Assessment & Plan Assessment & Plan (1) HTN (hypertension): Code(s): I10 - Essential (primary) hypertension Category: Medical Plan: History of Present Illness - The patient is a 70-year-old female presenting with sciatica and shoulder pain. - Sciatica: Reports occasional sciatica with pain radiating down the leg. - Shoulder pain: Experiences discomfort in the shoulder, especially when twisting the arm or hooking a bra. - Hiatal hernia and Mcgee's esophagus: Has a history of hiatal hernia and Mcgee's esophagus, managed by Dr. Lagunas. - Preventative care: Mammogram scheduled for next Thursday; colonoscopy not due for another three years. 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 - Living situation: Lives with her brother. Review of Systems - Musculoskeletal: Reports occasional sciatica and shoulder pain when twisting the arm. - Gastrointestinal: Reports history of hiatal hernia and Mcgee's esophagus. - Ophthalmologic: Denies vision problems, recently saw an eye doctor. - Neurological: Denies any issues with activities of daily living. Physical Exam General: Cooperative and healthy appearing Nutritional Appearance: Well nourished Orientation/consciousness: Patient oriented x3 Limitations: No limitations Head: Normal to inspection General: Appearance normal, both eyes and all related structures Neck: Normal visual inspection Chest: Normal palpation of entire chest wall Respiratory: N ormal respiratory effort Neurology: Patient oriented x3, reports occasional sciatica and arm discomfort when twisting or hooking bra. Results Plan - Order fasting blood work to evaluate overall health. - Recommend physical therapy for shoulder pain. - Follow up on mammogram results post-appointment. - Maintain current treatment for hiatal hernia and Mcgee's esophagus. Discussion Notes I discussed the need for fasting blood work to monitor the patient's health status and recommended scheduling a physical therapy evaluation for shoulder pain. We also reviewed the upcoming mammogram and the current management of hiatal hernia and Mcgee's esophagus. Patient Instructions - Complete fasting blood work as ordered. - Attend scheduled physical therapy sessions for shoulder pain. - Follow up on mammogram results after the appointment. - Continue current treatment for hiatal hernia and Mcgee's esophagus. (2) Strain of right shoulder: Code(s): S46.911A - Strain of unspecified muscle, fascia and tendon at shoulder and upper arm level, right arm, initial encounter Plan: XRay and physical therapy ordered Orders: Orders Complete Blood Count no Diff Today I10 - Essential (primary) hypertension Liver Panel Today I10 - Essential (primary) hypertension Influenza [id number] Immunization Today Z23 - Encounter for immunization Basic Metabolic Panel Today I10 - Essential (primary) hypertension Lipid Panel Today I10 - Essential (primary) hypertension Thyroid Stimulating Hormone Today I10 - Essential (primary) hypertension XR shoulder RT min 2V Today S43.401A - Unspecified sprain of right shoulder joint, initial encounter PT Evaluation and Treatment Today S46.911A - Strain of unspecified muscle, fascia and tendon at shoulder and upper arm level, right arm, initial encounter
[2025-08-01 11:16] VITALS: BP 146/82; PULSE 62; RESP 14; TEMP 36.7; O2SAT 97; BMI 32.3
--- OUTSIDE RECORDS SUMMARY | 2025-08-01 13:07 | XMS_ITS | Patient Health Record ---
Author Organization [facility] Address [address] [place] [id number] Care Team Providers Care Infusion Nurse Name Role Phone Robby (RETIRED) Marco TATE Primary Care Provider Unavailable Abel Lagunas Unavailable [phone] Allergies Allergen (clinical drug ingredient) Drug/Non Drug Allergy documented on EMR Reaction Allergy Type Onset Date Status lisinopril Lisinopril Unknown Drug Allergy Activ e Reason For Referral No Information Medications Medication SIG (Take, Route, Frequency, Duration) Notes Start Date End Date Status Pantoprazole Sodium 40 MG 1 tablet Orall y Once a day every morning for 90 days 09/06/2024 Active Metoprolol Succinate ER 100 MG Oral for 90 Active Losartan Potassium 50 MG Oral for 90 Active metroNIDAZOLE 0.75 % External for 30 Active Loteprednol Etabonate 0.5 % Ophthalmic for 25 Active Calcium + Vitamin D3 600-5 MG-MCG 1 tablet with a meal Orally Once a day for 30 day(s) Active Pantoprazole Sodium 40 MG 1 tablet Orall y Once a day for 90 days 01/26/2023 Active Pantoprazole Sodium 40 MG 1 tablet Orall y Once a day for 90 days 01/22/2023 Active Fish Oil 1000 MG 1 capsule Orally Onc e a day for 30 day(s) Active Pantoprazole Sodium 40 MG 1 tablet Orall y Once a day 01/22/2023 Active Pantoprazole Sodium 40 MG 1 tablet Orall y Once a day for 90 days 10/29/2023 Active Restasis 0.05 % 1 drop into affected eye Ophthalmic Twice a day Active Pantoprazole Sodium 20 MG Oral for 90 Active Simvastatin 40 MG Oral for 90 Active Immunizations Vaccine Route Administration Date Status Comme nts Influenza Unknown 09/09/2022 Administered Social History Tobacco Use: Social History Observation Description Date Details (start date - stop date) Never Smoker NA - NA Tobacco Use/Smoking Question Answer Notes Patient is a nonsmoker Alcohol Screen Question Answer Notes Did you have a drink containing alcohol in the p ast year? No Points 0 Interpretation Negative Section Notes: She does not smoke nor use a ny significant amounts of alcohol She does not smoke nor use a ny significant amounts of alcohol Problems Problem Type SNOMED Code ICD Code Onset Dates Problem Status W/U Status Risk Notes Problem 244728890 Colon cancer screening (Z12.11) Active confirmed Problem 185485974 History of adenomatous polyp of colon (Z86.010) Active confirmed Problem 463686490 Mcgee's esopha jonatan without dysplasia (K22.70) Active confirmed Problem 385216358 Gastroesophageal reflux disease without esophagitis (K21.9) Active confirmed Problem 636309957597133 Preprocedural examination (Z01.818) Active confirmed Problem 621442161 Family history o f colon cancer (Z80.0) Active confirmed Problem Gastric polyp (54625255) Gastric polyp (K31.7) Active confirmed Problem 98145376 Hiatal hernia (K44.9) Active confirmed Problem Esophageal reflux finding (264315910) Gastroesophageal reflux (K21.9) Active confirmed Problem Diverticulosis of colon (929360204) Diverticulosis of colon (K57.30) Active confirmed Problem 389532737 Gastroesophageal reflux disease, unspecified whether esophagitis present (K21.9) Active confirmed Encounters Encounter Location Date Provider Diagnosis [facility] [address] [place] [address] 09/06/2024 Abel Lagunas [facility] [address] [place] [address] 04/28/2025 Abel Lagunas Plan Of Treatment Pending Test Test Name Order Date XR BARIUM SWALLOW-ESOPHAGUS 01/04/2023 XR GI SERIES 01/04/2023 Future Test Test Name Order Date UPPER GI ENDOSCOPY 11/11/2022 COLONOSCOPY 11/11/2022 Insurance Providers Payer Name Payer Address Payer Phone Subscriber Number Group Number Insured Name Patient Relationship to Insured Coverage Start Date Coverage End Date [facility] [address] [facility] [place] [phone] [id number] EMILY ARTEAGA Self - patient is the insured Medical (General) History Medical History History ICD Code Denies MO,DM,CVA,Lung disease,renal dise ase Hypertension Hyperlipidema GERD--upper endoscopy in Dec revealed a large hiatal hernia and small area of Mcgee's esophagus with biopsies negative for dysplasia. There was no esophagitis. Gastric polyps were benign and there was no H. pylori. A followup upper GI series was negative for any sign of the thoracic stomach as I had originally suspected that during the upper endoscopy. Dry eyes Screening colonoscopy in with Dr. Devine revealed only hyperplastic polyps Negative colonoscopy 09/[address] Carrillo ellison Colonoscopy in December of 2022 revealed a small tubular adenoma. Surgical History Surgery Date(Month/Year) Knee arthroscopy on the right [facility] 10/2020 Pilonidal cyst 11/1973 D&C 06/2020
== END 2025-08-01 11:42 | disposition home or self-care (01) ==
LOC: HO.HMCSH 10:40
PROVIDERS: PCP Internal Medicine; Visit Provider Internal Medicine
DX: I10 Essential (primary) hypertension (principal); S46.911A Strain of unspecified muscle, fascia and tendon at shoulder and upper arm level, right arm, initial encounter; Z23 Encounter for immunization

== ENCOUNTER → 2025-08-01 11:58 | Outpatient (BNV) | payer MEDICARE, SELFPAY | PROVIDERS: PCP Internal Medicine; Visit Provider Radiology Diagnostic Radiology | DX: S43.401A Unspecified sprain of right shoulder joint, initial encounter (principal); M75.31 Calcific tendinitis of right shoulder | CPT/HCPCS: 73030 ==

== ENCOUNTER 2025-08-07 08:26 | Outpatient (REF) | payer MEDICARE, SELFPAY ==
--- NOTE | ~2025-08-07 | MM_ITS ---
EXAMINATION: MM SCREENING DIGITAL BREAST TOMOSYNTHESIS, BILATERAL CLINICAL INFORMATION: Screening. Asymptomatic. COMPARISON: Mammography: Comparison is made with available priors TECHNIQUE: Digital breast mammography with tomosynthesis is performed in both the craniocaudal and mediolateral oblique views along with computer-aided detection (CAD). FINDINGS: The breasts are heterogeneously dense, which may obscure small masses. Left: Focal asymmetry upper inner breast middle to posterior depth. Asymmetry superior breast posterior depth on MLO view. No suspicious calcifications or other abnormal findings. Right: There are no significant masses, abnormal calcifications, or other abnormalities. MM/MM tomosynthesis screening BI IMPRESSION: Additional imaging is recommended ASSESSMENT: BI-RADS Category 0: Incomplete - Need additional Imaging Evaluation RECOMMENDATION: 1. Additional views of the left breast. 2. Targeted ultrasound if warranted after review of the additional views. 3. Radiology department staff will contact the patient for additional imaging. Additional Imaging required This examination should not preclude the clinical evaluation of a suspicious palpable abnormality. This patient's information was entered into a reminder system with a target due date for their next mammogram. Electronically signed by: Ana Tapia DO 08/08/2025 12:36 PM EDT
--- OUTSIDE RECORDS SUMMARY | 2025-08-07 08:48 | XMS_ITS | Patient Health Record ---
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 Role Phone Robby (RETIRED) Marco TATE Primary Care Provider Unavailable Abel Lagunas Unavailable [phone] Allergies Allergen (clinical drug ingredient) Drug/Non Drug [...] Problem Status W/U Status Risk Notes Problem 419384518 Colon cancer screening (Z12.11) Active confirmed Problem 145973485 History of adenomatous polyp of colon (Z86.010) Active confirmed Problem 215840556 Mcgee's esopha jonatan without dysplasia (K22.70) Active confirmed Problem 446132314 Gastroesophageal reflux disease without esophagitis (K21.9) Active confirmed Problem 322862407065816 Preprocedural examination (Z01.818) Active confirmed Problem 762278526 Family history o f colon cancer (Z80.0) Active confirmed Problem Gastric polyp (55577968) Gastric polyp (K31.7) Active confirmed Problem 09894511 Hiatal hernia (K44.9) Active confirmed Problem Esophageal reflux finding (125825384) Gastroesophageal reflux (K21.9) Active confirmed Problem Diverticulosis of colon (317962085) Diverticulosis of colon (K57.30) Active confirmed Problem 314687941 Gastroesophageal reflux disease, unspecified whether esophagitis present (K21.9) Active confirmed Encounters Encounter Location Date Provider Diagnosis [facility] [address] [place] [address] 09/06/2024 Abel Lagunas [facility] [address] [place] [address] 04/28/2025 Abel Lagunas Plan Of Treatment Pending Test Test Name Order Date XR BARIUM SWALLOW-ESOPHAGUS 01/04/2023 XR GI SERIES 01/04/2023 Future Test Test Name Order Date UPPER GI ENDOSCOPY 11/11/2022 COLONOSCOPY 11/11/2022 Insurance Providers Payer Name Payer Address Payer Phone Subscriber Number Group Number Insured Name Patient Relationship to Insured Coverage Start Date Coverage End Date [facility] [address] [facility] [place] [phone] [id number] EMILY ARTEAGA Self - patient is the insured Medical (General) History Medical History History ICD Code Denies ND,DM,CVA,Lung disease,renal dise ase Hypertension Hyperlipidema GERD--upper endoscopy [...] Surgery Date(Month/Year) Knee arthroscopy on the right [facility] 10/2020 Pilonidal cyst 11/1973 D&C 06/2020
== END 2025-08-07 08:27 | disposition home or self-care (01) ==
LOC: HO.MAMMO 08:26
PROVIDERS: PCP Internal Medicine; Visit Provider Internal Medicine
DX: Z12.31 Encounter for screening mammogram for malignant neoplasm of breast (principal)
CPT/HCPCS: 77063; 77067

== ENCOUNTER → 2025-08-07 08:30 | Outpatient (BNV) | payer MEDICARE, SELFPAY | PROVIDERS: PCP Internal Medicine; Visit Provider Internal Medicine | DX: Z12.31 Encounter for screening mammogram for malignant neoplasm of breast (principal) | CPT/HCPCS: 77063; 77067 ==

== ENCOUNTER 2025-09-11 13:21 | Outpatient (REF) | payer MEDICARE, SELFPAY ==
--- NOTE | ~2025-09-11 | MM_ITS ---
EXAMINATION(S): MM DIAGNOSTIC DIGITAL BREAST TOMOSYNTHESIS, LEFT CLINICAL INFORMATION: Callback from screening for left breast findings: 1. Focal asymmetry in the upper inner quadrant middle to posterior depth. 2. Asymmetry in the superior breast posterior depth on the MLO view. COMPARISON: Comparison made to multiple prior, most recent August 07, 2025, and most remote December 04, 2017. TECHNIQUE: Digital breast tomosynthesis is performed in full field ML 90 degrees along with computer-aided detection (CAD). Synthesized 2D images are generated from the tomosynthesis. Spot compression tomosynthesis were obtained. FINDINGS: BREAST COMPOSITION: The breasts are heterogeneously dense, which may obscure small masses. LEFT BREAST: -On today's images, previously described asymmetry in the upper breast posterior depth is similar to multiple prior studies as far back as 2018. - Previously described focal asymmetry in the upper inner quadrant is pliable with spot compression; on today's images, the local parenchyma is similar to multiple prior studies as far back as 2018. Therefore, it likely represented overlapping fibroglandular breast tissue. MM/MM tomosynthesis added views L IMPRESSION: LEFT BREAST: Negative, no mammographic evidence of malignancy. Normal interval follow-up is recommended in 12 months. ASSESSMENT: BI-RADS: Category 1: Negative RECOMMENDATION: 1 year F/U Results were provided to the patient at time of visit by the technologist. This patient's information was entered into a reminder system with a target due date for their next mammogram. Electronically signed by: Marlo Terrazas MD 09/11/2025 02:37 PM [facility]
== END 2025-09-11 13:22 | disposition home or self-care (01) ==
LOC: HO.MAMMO 13:21
PROVIDERS: PCP Internal Medicine; Visit Provider Internal Medicine
DX: N64.89 Other specified disorders of breast (principal)
CPT/HCPCS: 77061; 77065

== ENCOUNTER → 2025-09-11 13:30 | Outpatient (BNV) | payer MEDICARE, SELFPAY | PROVIDERS: PCP Internal Medicine; Visit Provider Radiology Body Imaging | DX: R92.8 Other abnormal and inconclusive findings on diagnostic imaging of breast (principal) | CPT/HCPCS: 77065; G0279 ==

== ENCOUNTER 2025-10-16 10:03 | Outpatient (REF) | payer MEDICARE, SELFPAY ==
--- NOTE | ~2025-10-16 | XR_ITS ---
EXAMINATION: XR KNEE, LEFT CLINICAL INFORMATION: M25.562 - Pain in left knee COMPARISON: None available. TECHNIQUE: Four views of the left knee. FINDINGS: No acute fracture or joint effusion. Alignment is anatomic. Joint spaces are maintained. No abnormal soft tissue calcification. XR/XR knee LT 4V IMPRESSION: No acute findings Electronically signed by: Zaki Man MD 10/16/2025 04:25 PM EST
== END 2025-10-16 10:04 | disposition home or self-care (01) ==
LOC: HO.HMGCX 10:03
PROVIDERS: PCP Internal Medicine; Visit Provider Physician Assistant Medical
DX: M25.562 Pain in left knee (principal); R20.2 Paresthesia of skin; R73.03 Prediabetes; Z13.31 Encounter for screening for depression
CPT/HCPCS: 73564; 83036; 96127; 99212

== ENCOUNTER 2025-10-16 10:03 | Outpatient (AMB) | payer MEDICARE, SELFPAY ==
[2025-10-16 09:52] VITALS: BP 146/64; PULSE 73; RESP 18; TEMP 36.6; O2SAT 99; BMI 31.8
--- NOTE | 2025-10-16 09:52 | A.OFFPC_ITS ---
Vital Signs 10/16/25 09:52 10/16/25 10:36 Height 5 ft 2.2 in Weight 175 lb 4 oz BMI 31.8 BP 146/64 H 137/63 Blood Pressure Location Lt brachial Lt brachial Position Sitting Sitting Respiration 18 Pulse 73 54 Pulse Source Pulse Oximeter Monitor Temp 97.9 F Temp Source Temporal Artery Scan Pulse Oximetry (%) 99 Oxygen Delivery Method Room Air Intake Visit Reasons: Left knee pain Corporate Ethics Officer Required: No Accompanied by: Self / Same As Patient Allergies lisinopril Allergy (Unknown, Verified 10/16/25 10:17) Cough Medication List - Last Reconciled 10/16/25 by Avani Alva PA-C amlodipine mg PO calcium carbonate-vitamin D3 500 mg-3.125 mcg (125 unit) 1 tab PO BID cyclosporine 0.05% (Restasis) 1 drp ophthalmic (eye) Q12H losartan 50 mg PO DAILY metoprolol succinate ER 100 mg PO DAILY omega 1-zjn-bye-fish oil 1,000 (120-180) mg (Fish Oil) 1 cap PO DAILY pantoprazole 40 mg PO DAILY simvastatin 40 mg PO BEDTIME Tobacco use date assessed: 08/01/25 Dental Screening Dental Screen Date: 08/01/25 HPI HPI Comments History of Present Illness Details History of Present Illness The patient is a 70 year old female presenting with left knee pain and abnormal skin sensation on her leg. She reports the onset of left knee pain after weekend when she was retrieving [employer] boxes from the attic while wearing unsupportive slippers. The pain is localized to the inner aspect of her knee, is worse with initial steps after sitting, and with prolonged standing. She has a history of a left tibial fracture 25 years ago and a torn meniscus in the same knee, for which she underwent surgery and physical therapy. She has tried home exercises from a previous physical therapy regimen, which have not provided lasting relief this time. Approximately two weeks ago, concurrent with the knee pain, she began experiencing a burning, prickly, sunburn-like sensation on the skin of her leg, which is aggravated by clothing rubbing against it. She denies any visible rash in the area. She has tried aloe with minimal relief. The patient's medical history is notable for a prior left leg fracture and surgical repair of a torn meniscus. She denies any recent fall, chest pain, or shortness of breath. She reports being up to date on her mammogram and sees a demonstrator sewing techniques annually. She is currently undergoing physical therapy for a shoulder issue. Social History - Physical Activity: Engages in home exe rcises learned from previous physical therapy and is currently attending physical therapy for her shoulder. - Nutritional Intake: The patient was co unseled on diet to manage prediabetes, particularly around the holidays [facility] Medical History (Updated 10/16/25 @ 10:57 by Avani Alva PA-C) Healthcare maintenance Prediabetes Paresthesia of skin Left knee pain GERD (gastroesophageal reflux disease) On beta addison at home Elevated cholesterol HTN (hypertension) Surgical History Hx of arthroscopy of right knee H/O colonoscopy (~01/02/23) History of dilatation and curettage History of surgical removal of pilonidal cyst Family History Mother Breast cancer Maternal Uncle Lung cancer Brother Colon cancer Social History Housing: House Alcohol intake: current Alcohol intake frequency: holidays/special occasions only Patient Tobacco Use Status: Never used Tobacco service: No Current occupational status: retired Sexual orientation: Straight/Heterosexual Gender identity: Female Cognitive needs: No Hearing needs: No Vision needs: Yes (rx glasses) Female Reproductive History Menstrual Age of Menarche: 10 Questionnaire PHQ-9 Over the last 2 weeks, how often have you been bothered by any of the following problems? 1. Little interest or pleasure in doing things: not at all 2. Feeling down, depressed, or hopeless: not at all 3. Trouble falling or staying asleep, or sleeping too much: not at all 4. Feeling tired or having little energy: not at all 5. Poor appetite or overeating: not at all 6. Feeling bad about yourself - or that you are a failure or have let yourself or your family down: not at all 7. Trouble concentrating on things, such as reading the newspaper or watching television: not at all 8. Moving or speaking so slowly that other people could have noticed. Or the opposite - being so fidgety or restless that you have been moving around a lot more than usual: not at all 9. Thoughts that you would be better off or of hurting yourself in some way: not at all Total score: 0 Depression Screening Interpretation: Negative Depression Screening Done: Yes 28022 - PHQ-9 Billing: Yes Source: Developed by Drs. Abel Amezcua, Tova Fernandez, Victorino Doe and colleagues, with an educational indio from [employer]. Thrive Questionnaire Date Thrive assessed: 08/01/25 I am a: Patient What is your living situation today?: I have a steady place to live Within the past 12 months, did the food you bought not last and you didn't have the money to get more?: Never true Within the past 12 months, did you worry whether your food would run out before you got money to buy more?: Never true Do you have trouble paying for medicines?: No Do you have trouble getting transportation to medical appointments?: No Do you have trouble paying your heating and electricity bill?: No Do you have trouble taking care of your child, family member or friend?: No Do you have trouble with day-to-day activities such as bathing, preparing meals, shopping, managing finances, etc.?: No Are you currently unemployed and looking for a job?: No Are you interested in more education?: No Please select the resources that you would like help with: None THRIVE Score: 0 AUDIT C Alcohol Use Questionnaire (AUDIT-C) 1. How often do you have a drink containing alcohol?: Monthly or less 2. How many drinks containing alcohol do you have on a typical day when you are drinking?: 1 or 2 3. How often do you have six or more drinks on one occasion?: Never Total Score: 1 Score Reviewed/Action Taken: No MARÍA-7 AMB Questionnaire MARÍA-7 Date MARÍA - 7 assessed: 08/01/25 Feeling nervous, anxious, or on edge: 0 = Not at all Not being able to stop or control worryin = Not at all Worrying too much about different things: 0 = Not at all Trouble relaxin = Not at all Being so restless that it is hard to sit still: 0 = Not at all Becoming easily annoyed or irritable: 0 = Not at all Feeling afraid as if something awful might happen: 0 = Not at all Total MARÍA-7 score (0-4 normal; 5-9 mild; 10-14 moderate; 15-21 severe): 0 Source: Developed by Drs. Abel Amezcua, Tova Fernandez, Victorino Doe and colleagues, with an educational indio from [employer]. MARÍA-7 Assessment Billing MARÍA-7 Assessment Tool: MARÍA-7 Assessment 86608 Review of Systems Narrative Review of Systems - Musculoskeletal: Reports achy pain in the left knee, localized medially, which worsens after sitting and with prolonged standing. - Cardiovascular: Denies chest pain. - Respiratory: Denies shortness of breath. - Neurological: Denies numbness or tingling in the leg. - Integumentary: Reports a burning, prickly, sunburn-like sensation on the skin of her leg for a couple of weeks, without a visible rash. Const All systems reviewed & are unremarkable except as noted in HPI and below Physical exam (Primary Care) Vital Signs: Last Vital Signs Temp 97.9 F 10/16/25 09:52 Pulse 54 10/16/25 10:36 Resp 18 10/16/25 09:52 BP 137/63 10/16/25 10:36 Pulse Ox 99 10/16/25 09:52 Oxygen Delivery Method Room Air 10/16/25 09:52 Care Plan Goal for BP management: <140/90 at Goal BMI result Body Mass Index 31.8 BMI Assessment/Plan discussion: High BMI High, discussed plan: lifestyle, weight reduction, dietary, physical activity, alcohol moderation and other Tobacco/Smoking Status: Tobacco use Status Tobacco use date assessed 08/01/25 10/16/25 09:55 Patient Tobacco Use Status Never used Tobacco 10/16/25 09:55 PHQ-9: PHQ-9 Score PHQ-9: Total score 0 10/16/25 10:17 Depression Screening Interpretation: Negative Thrive Assessment: Date of Thrive Assessment Date Thrive assessed 08/01/25 10/16/25 09:55 Narrative Physical Exam Appearance: Alert. Oriented X3. No acute distress. Head: Normal external exam. Normocephalic. Atraumatic. Eyes: Pupils are equal, round, and reactive to light. Extraocular movements intact. Conjunctiva and sclera normal. Eyelids normal. Throat: Pharynx normal. Uvula midline. Moist mucous membranes. Neck: Normal inspection. Neck supple. Full range of motion. Cardiovascular: Normal heart rate and rhythm. Respiratory: No respiratory distress. Painless inspiration. Abdomen: Soft and nontender. No distention noted. No organomegaly noted. No visible injury noted. No rashes noted. Reports a prickly sensation on the skin on the left side of her abdomen. Back: No costovertebral angle tenderness. Full range of motion noted. Skin: Skin warm and dry. Normal skin color. Normal skin turgor. No r ashes/lesions/lacerations noted. Reports a burning sensation on the skin near the left side of her abdomen, described as feeling like a sunburn, but no visible rash or discoloration observed. Extremities: Left knee exhibits mild soft tissue swelling at the medial aspect of the knee. Tenderness especially near the inner patella area. No lower extremity edema. Extremities exhibit normal range of motion. No tenderness in other extremities. Neuro: Oriented X 3. No motor deficit. No sensory deficit. Reflexes normal. Reports a prickly sensation on the skin on the left side of her abdomen. Results AMB Hemoglobin A1c AMB Hemoglobin A1c 6.1 % Last Edit by ELVIS Teixeira on 10/16/25 10:38 Results Reviewed Results Reviewed: - Labs: Vifxh-bi-eont Hemoglobin A1c was 6.1%. Coding Level of Care Code Est Pt Level 4 (52723) Complex visit Add On G2211 Diagnoses Left knee pain M25.562 Paresthesia of skin R20.2 Prediabetes R73.03 Healthcare maintenance Z00.00 Additional Codes PHQ-9 - 07387 - PHQ-9 Billing: Yes ([id number]) MARÍA-7 Assessment Billing - MARÍA-7 Assessment Tool: MARÍA-7 Assessment 64061 ([id number]) Time Spent (min) 60 Assessment & Plan Assessment & Plan (1) Left knee pain: Code(s): M25.562 - Pain in left knee Category: Medical Plan: The patient presents with left knee pain which may be related to exacerbation of arthritis secondary to a prior tibial fracture and meniscal surgery. Deep vein thrombosis is less likely as she denies calf pain, recent travel, chest pain, or shortness of breath. An X-ray of the left knee was ordered to evaluate for underlying pathology. Meloxicam once daily was prescribed for pain and inflammation. Topical Voltaren cream was also prescribed. A referral was provided for physical therapy, which she can continue at her current facility. If symptoms do not improve with these interventions, a referral to an beverage specialist for possible injections will be considered. (2) Paresthesia of skin: Code(s): R20.2 - Paresthesia of skin Category: Medical Plan: The patient reports a burning, prickly sensation on the skin of her leg for a couple of weeks, suggestive of paresthesia. Shingles is considered less likely as the symptoms have persisted for a couple of weeks without the appearance of a rash. Gabapentin 100 mg daily was prescribed to manage this nerve-related sensation. The patient was instructed on how to titrate the dose up to three times a day if needed, with the requirement to report any dose changes. She was also advised on how to taper off the medication if she decides to discontinue it. (3) Prediabetes: Code(s): R73.03 - Prediabetes Category: Medical Plan: A drnca-uh-vpgi hemoglobin A1c test revealed a result of 6.1%, indicating prediabetes. The patient was counseled on dietary modifications to manage her blood sugar and avoid progression to diabetes, which would require medication if her A1c reaches 6.5%. A full fasting lab panel, including a repeat A1c, will be ordered for her annual physical. (4) Healthcare maintenance: Code(s): Z00.00 - Encounter for general adult medical examination without abnormal fi ndings Category: Medical Plan: The patient's upcoming follow-up appointment in January was changed to a physical, scheduled for February 21. Fasting lab work was ordered to be completed before the visit, which will include a CBC, CMP, cholesterol panel, magnesium, urinalysis, thyroid function tests, vitamin B12, and vitamin D. The patient confirmed she recently had a mammogram. She has a follow-up appointment scheduled. Plan Plan Patient was informed and verbally consented to the use of an ambient scribe for clinic note documentation during this visit. 1. Arthralgia Of Left Knee The patient presents with left knee pain which may be related to exacerbation of arthritis secondary to a prior tibial fracture and meniscal surgery. Deep vein thrombosis is less likely as she denies calf pain, recent travel, chest pain, or shortness of breath. An X-ray of the left knee was ordered to evaluate for underlying pathology. Meloxicam once daily was prescribed for pain and inflammation. Topical Voltaren cream was also prescribed. A referral was provide d for physical therapy, which she can continue at her current facility. If symptoms do not improve with these interventions, a referral to an beverage specialist for possible injections will be considered. 2. Paresthesia Of Skin The patient reports a burning, prickly sensation on the skin of her left side of her abdomen for a couple of weeks, suggestive of paresthesia. Shingles is considered less likely as the symptoms have persisted for a couple of weeks without the appearance of a rash. Gabapentin 100 mg daily was prescribed to manage this nerve-related sensation. The patient was instructed on how to titrate the dose up to three times a day if needed, with the requirement to report any dose changes. She was also advised on how to taper off the medication if she decides to discontinue it. 3. Prediabetes A idnln-om-qpin hemoglobin A1c test revealed a result of 6.1%, indicating prediabetes. The patient was counseled on dietary modifications to manage her blood sugar and avoid progression to diabetes, which would require medication if her A1c reaches 6.5%. A full fasting lab panel, including a repeat A1c, will be ordered for her annual physical. 4. Health maintenance The patient's upcoming follow-up appointment in January was changed to a physical, scheduled for February 21. Fasting lab work was ordered to be completed before the visit, which will include a CBC, CMP, cholesterol panel, magnesium, urinalysis, thyroid function tests, vitamin B12, and vitamin D. The patient confirmed she recently had a mammogram. She has a follow-up appointment scheduled. Discussion Notes I discussed my assessment of the patient's left knee pain, explaining that it is likely due to worsening arthritis, possibly related to her prior injury, but that we will get an X-ray to be certain. I explained the plan, including prescribing meloxicam for inflammation, topical Voltaren cream for localized pain, and a referral for physical therapy. We agreed to consider an orthopedic referral for injections if her symptoms do not improve with physical therapy and medication. Regarding the burning sensation on her leg, I explained that it could be a type of nerve pain called paresthesia and that shingles is less likely given the duration without a rash. I prescribed gabapentin and provided detailed instructions on how to start, titrate the dose if needed, and taper off the medication slowly if she chooses to stop it. I informed her that gabapentin can cause sleepiness. I informed her that her A1c result of 6.1% indicates prediabetes and discussed the importance of diet and lifestyle changes to prevent progression to type 2 diabetes, which would necessitate medication if her A1c reaches 6.5%. We scheduled her annual physical for February 21 and I ordered fasting blood work to be done beforehand. I advised her to let me know if she develops chest pain. Orders: Orders XR knee LT 4V Today M25.562 - Pain in left knee Complete Blood Count Auto Diff Today Z00.00 - Encounter for general adult medical examination without abnormal findings Magnesium Today Z00.00 - Encounter for general adult medical examination without abnormal findings Vitamin B12 and Folate Today Z00.00 - Encounter for general adult medical examination without abnormal findings TSH reflex Free T4 Today Z00.00 - Encounter for general adult medical examination without abnormal findings Hemoglobin A1c Today Z00.00 - Encounter for general adult medical examination without abnormal findings PT Evaluation and Treatment Today M25.562 - Pain in left knee AMB Hemoglobin A1c Today Z13.9 - Encounter for screening, unspecified C Reactive Protein Today Z00.00 - Encounter for general adult medical examination without abnormal findings Comprehensive [place]. Panel Fast Today Z00.00 - Encounter for general adult medical examination without abnormal findings Erythrocyte Sedimentation Rate Today Z00.00 - Encounter for general adult medical examination without abnormal findings Vitamin D 25-OH Total Today Z00.00 - Encounter for general adult medical examination without abnormal findings UA CC w/rflx Micro + Cult Today Z00.00 - Encounter for general adult medical examination without abnormal findings Microalbumin, Random (w Creat) Today E11.9 - Type 2 diabetes mellitus without complications Lipid Panel Today Z00.00 - Encounter for general adult medical examination without abnormal findings Medications: New meloxicam 15 mg PO DAILY 90 tabs 3RF diclofenac sodium 1% (Voltaren Arthritis Pain) apply to single knee, ankle, foot; for foot includes sole/toes/top of foot 4 grams topical QID 100 grams 3RF gabapentin 100 mg PO DAILY 90 caps 3RF Patient Instructions: Patient Instructions - Take Meloxicam once a day to help with pain and swelling in your knee. - Apply Voltaren cream to your knee as needed for pain. - Begin taking Gabapentin 100 mg once a day for the burning sensation on your skin. - Be aware that Gabapentin may make you sleepy. Wait to take it until you are home. - You may gradually increase the Gabapentin dose if needed, but please call the office to let us know of any changes. - Do not stop taking Gabapentin suddenly; you'll need to decrease the dose slowly. - Go for an X-ray of your left knee. - Follow up with your physical therapist for your knee pain. - Your blood sugar level is slightly high, which is called prediabetes. Please watch your sugar intake to help bring this number down. - Your next appointment is for your annual physical exam on February 21. - Please get fasting blood work done a week before your next appointment. Do not eat or drink anything for 10-12 hours before the test. - Please let us know if you develop a rash, chest pain, or if your symptoms get worse.
[2025-10-16 10:36] VITALS: BP 137/63; PULSE 54
== END 2025-10-16 10:41 | disposition home or self-care (01) ==
LOC: HO.HMCSH 10:03
PROVIDERS: PCP Internal Medicine; Visit Provider Physician Assistant Medical
DX: M25.562 Pain in left knee (principal); R20.2 Paresthesia of skin; R73.03 Prediabetes; Z00.00 Encounter for general adult medical examination without abnormal findings; Z13.9 Encounter for screening, unspecified

== ENCOUNTER → 2025-10-16 11:11 | Outpatient (BNV) | payer MEDICARE, SELFPAY | PROVIDERS: PCP Internal Medicine; Visit Provider Radiology Diagnostic Ultrasound | DX: M25.562 Pain in left knee (principal) | CPT/HCPCS: 73564 ==